=== PATIENT | male | born 1950 | race Caucasian/White ===

== ENCOUNTER 2023-03-11 00:45 | Inpatient (IN) | payer BC ==
[~2023-03-11] VITALS: Ht 172.7 cm; Wt 103.2 kg
[~2023-03-11 00:45] MED LIST: CALC667T6 PO; DOXY100C5 PO; PROXL60 PO; QUET50TA92 PO; SER25 PO
[2023-03-11 00:51] VITALS: BP_SYST 182
[2023-03-11 01:30] LABS: BASOPHILS # (AUTO) 0.1 K/uL (0.0-0.2); BASOPHILS % (AUTO) 0.9 % (0.0-2.0); EOSINOPHILS # (AUTO) 0.1 K/uL (0.0-0.4); EOSINOPHILS % (AUTO) 1.9 % (0.0-4.0); HEMATOCRIT 28.7 % (36-54); HEMOGLOBIN 9.3 g/dL (14.0-18.0); LYMPHOCYTES # (AUTO) 0.6 K/uL (1.0-5.5); LYMPHOCYTES % (AUTO) 8.5 % (20.5-51.5); MEAN CORPUSCULAR HEMOGLOBIN 31 pg (27-31); MEAN CORPUSCULAR HGB CONC 32 % (32-36); MEAN CORPUSCULAR VOLUME 96 fL (79.0-98.0); MONOCYTES # (AUTO) 0.7 K/uL (0.0-1.0); MONOCYTES % (AUTO) 9.3 % (1.7-9.3); NEUTROPHILS # (AUTO) 5.5 K/uL (1.8-7.7); NEUTROPHILS % (AUTO) 79.4 % (40.0-70.0); PLATELET COUNT (AUTO) 121 K/uL (130-430); RED BLOOD CELL COUNT(AUTO) 2.99 MIL/uL (4.2-6.2); RED CELL DISTRIBUTION WIDTH 16.8 % (9.0-15.0)
[2023-03-11 02:03] LABS: ALANINE AMINOTRANSFERASE 39 U/L (12-78); ALBUMIN 3.6 g/dL (3.4-4.8); ANION GAP 21 (5-15); ASPARTATE AMINOTRANSFERASE 35 U/L (10-37); CHLORIDE 106 mmol/L (98-107); GLUCOSE 139 mg/dL (70-99); PHOSPHORUS 9.8 mg/dL (2.7-4.5); TOTAL BILIRUBIN 0.4 mg/dL (0.0-1.0)
[2023-03-11 02:10] LABS: CALCIUM 5.8 mg/dL (8.4-11.0); CREATININE 14.73 mg/dL (0.55-1.30); UREA NITROGEN, BLOOD 188 mg/dL (8-21)
[2023-03-11 03:20] LABS: BILIRUBIN,URINE NEGATIVE (NEGATIVE); BLOOD, URINE 2+ (NEGATIVE); CLARITY/URINE CLEAR (CLEAR); COLOR,URINE YELLOW (YELLOW); GLUCOSE,URINE NEGATIVE (NEGATIVE); KETONES,URINE NEGATIVE (NEGATIVE); LEUKOCYTE ESTERASE ,URINE NEGATIVE (NEGATIVE); NITRITE, URINE NEGATIVE (NEGATIVE); PROTEIN URINE 3+ (NEGATIVE); UROBILINOGEN,URINE 0.2 (0.2-1.0)
[2023-03-11] MEDS ORDERED: hydrALAZINE HCL 20 MG/ML VIAL IVP ONE (03:30)
[2023-03-11 03:36] LABS: BACTERIA,URINE RARE /HPF (None Seen)
[2023-03-11 03:58] VITALS: BP_SYST 154
[2023-03-11] MEDS ORDERED: HYDROcodone/ACETAMIN 5-325 MG TAB (NORCO/ VICODIN) PO ONE (04:30)
[2023-03-11 08:00] VITALS: BP_SYST 170
[2023-03-11 13:51] VITALS: BP_SYST 164
[2023-03-11 16:00] VITALS: BP_SYST 165
[2023-03-11] MEDS ORDERED: D5W 1,000 ML IV PRN (16:30)
[2023-03-11] MEDS ORDERED: GLUCOSE (DEXTROSE) ORAL GEL -Adults PO PRN (16:30)
[2023-03-11] MEDS ORDERED: DEXTROSE 50% JECT 50 ML DISP.SYRIN IVP PRN (16:30)
[2023-03-11] MEDS ORDERED: amLODIPine BESYLATE 10 MG TABLET PO ONE (17:00)
[2023-03-11] MEDS: SEVELAMER CARBONATE 800 MG TABLET PO SCH (17:21)
[2023-03-11] MEDS ORDERED: ONDANSETRON HCL 4 MG/2 ML VIAL IVP PRN (19:00)
[2023-03-11] MEDS: HALOPERIDOL LACTATE 5 MG/ML VIAL IM PRN (19:56)
[2023-03-11] MEDS: INSULIN GLARGINE 100 UNITS/ML, 10 ML VIAL SUBCUT SCH (22:31)
[2023-03-12] MEDS: HALOPERIDOL LACTATE 5 MG/ML VIAL IM PRN ×5 (00:04→22:00)
[2023-03-12 07:30] LABS: ALANINE AMINOTRANSFERASE 30 U/L (12-78); ALBUMIN 3.4 g/dL (3.4-4.8); ANION GAP 23 (5-15); ASPARTATE AMINOTRANSFERASE 28 U/L (10-37); CHLORIDE 97 mmol/L (98-107); GLUCOSE 163 mg/dL (70-99); TOTAL BILIRUBIN 0.7 mg/dL (0.0-1.0)
[2023-03-12 08:00] VITALS: BP_SYST 170
[2023-03-12] MEDS: SEVELAMER CARBONATE 800 MG TABLET PO SCH ×4 (08:00→18:49)
[2023-03-12 08:08] LABS: CALCIUM 6.5 mg/dL (8.4-11.0); UREA NITROGEN, BLOOD 125 mg/dL (8-21)
[2023-03-12 08:19] LABS: BASOPHILS # (AUTO) 0.1 K/uL (0.0-0.2); BASOPHILS % (AUTO) 0.7 % (0.0-2.0); EOSINOPHILS % (AUTO) 0.1 % (0.0-4.0); HEMATOCRIT 25.6 % (36-54); HEMOGLOBIN 8.5 g/dL (14.0-18.0); LYMPHOCYTES # (AUTO) 0.4 K/uL (1.0-5.5); LYMPHOCYTES % (AUTO) 4.7 % (20.5-51.5); MEAN CORPUSCULAR HEMOGLOBIN 32 pg (27-31); MEAN CORPUSCULAR HGB CONC 33 % (32-36); MEAN CORPUSCULAR VOLUME 96 fL (79.0-98.0); MONOCYTES # (AUTO) 0.8 K/uL (0.0-1.0); MONOCYTES % (AUTO) 10.1 % (1.7-9.3); NEUTROPHILS # (AUTO) 6.3 K/uL (1.8-7.7); NEUTROPHILS % (AUTO) 84.4 % (40.0-70.0); RED BLOOD CELL COUNT(AUTO) 2.68 MIL/uL (4.2-6.2); RED CELL DISTRIBUTION WIDTH 16.1 % (9.0-15.0); WHITE BLOOD COUNT (AUTO) 7.5 K/uL (4.8-10.8)
[2023-03-12] MEDS: amLODIPine BESYLATE 10 MG TABLET PO SCH ×2 (08:28→08:37)
[2023-03-12] MEDS ORDERED: QUEtiapine FUMARATE 25 MG TABLET PO ONE (09:30)
[2023-03-12] MEDS ORDERED: CALCIUM GLUCONATE 1 GM in NS 100 ML IV ONE (10:00)
[2023-03-12] MEDS: HEPARIN SODIUM,PORCINE 5,000 UNITS/ML VIAL SUBCUT SCH ×2 (10:49→21:00)
[2023-03-12] MEDS: hydrALAZINE HCL 20 MG/ML VIAL IVP PRN ×2 (10:59→18:38)
[2023-03-12 12:06] VITALS: BP_SYST 155
[2023-03-12 13:21] LABS: PLATELET COUNT (AUTO) 94 K/uL (130-430)
[2023-03-12 16:00] VITALS: BP_SYST 191
[2023-03-12] MEDS ORDERED: LORazepam 2 MG/ML VIAL IVP PRN (16:30)
[2023-03-12] MEDS ORDERED: METOPROLOL TARTRATE 50 MG TABLET PO ONE (16:45)
[2023-03-12] MEDS ORDERED: MORPHINE 2 MG/ML INJ. SYRINGE IVP PRN (17:15)
[2023-03-12 20:00] VITALS: BP_SYST 168
[2023-03-12] MEDS ORDERED: NITROGLYCERIN 250 ML IV ONE (21:30)
[2023-03-12] MEDS: QUEtiapine FUMARATE 25 MG TABLET PO SCH (21:52)
[2023-03-12] MEDS: INSULIN REGULAR, HUMAN 100 UNITS/ML, 3 ML VIAL (humuLIN R) SUBCUT PRN (22:15)
[2023-03-12] MEDS: INSULIN GLARGINE 100 UNITS/ML, 10 ML VIAL SUBCUT SCH (22:17)
[2023-03-12] MEDS: METOPROLOL TARTRATE 5 MG/5 ML VIAL IVP SCH (22:56)
[2023-03-13 00:43] VITALS: BP_SYST 162
[2023-03-13] MEDS: hydrALAZINE HCL 20 MG/ML VIAL IVP PRN (00:56)
[2023-03-13] MEDS: HALOPERIDOL LACTATE 5 MG/ML VIAL IM PRN ×2 (03:01→22:53)
[2023-03-13] MEDS: METOPROLOL TARTRATE 5 MG/5 ML VIAL IVP SCH ×4 (04:30→22:22)
[2023-03-13 05:45] LABS: BASOPHILS % (AUTO) 0.7 % (0.0-2.0); EOSINOPHILS % (AUTO) 0.5 % (0.0-4.0); HEMATOCRIT 28.5 % (36-54); HEMOGLOBIN 9.4 g/dL (14.0-18.0); LYMPHOCYTES # (AUTO) 0.7 K/uL (1.0-5.5); MEAN CORPUSCULAR HEMOGLOBIN 32 pg (27-31); MEAN CORPUSCULAR HGB CONC 33 % (32-36); MEAN CORPUSCULAR VOLUME 95 fL (79.0-98.0); MONOCYTES % (AUTO) 13.6 % (1.7-9.3); NEUTROPHILS # (AUTO) 5.6 K/uL (1.8-7.7); NEUTROPHILS % (AUTO) 75.2 % (40.0-70.0); PLATELET COUNT (AUTO) 103 K/uL (130-430); RED BLOOD CELL COUNT(AUTO) 2.99 MIL/uL (4.2-6.2); RED CELL DISTRIBUTION WIDTH 16.4 % (9.0-15.0); WHITE BLOOD COUNT (AUTO) 7.4 K/uL (4.8-10.8)
[2023-03-13 06:25] LABS: ALANINE AMINOTRANSFERASE 31 U/L (12-78); ALBUMIN 3.5 g/dL (3.4-4.8); ANION GAP 15 (5-15); ASPARTATE AMINOTRANSFERASE 40 U/L (10-37); CALCIUM 7.6 mg/dL (8.4-11.0); CHLORIDE 96 mmol/L (98-107); GLUCOSE 70 mg/dL (70-99); TOTAL BILIRUBIN 0.7 mg/dL (0.0-1.0); UREA NITROGEN, BLOOD 79 mg/dL (8-21)
[2023-03-13 06:42] LABS: CREATININE 8.17 mg/dL (0.55-1.30)
[2023-03-13] MEDS ORDERED: NITROGLYCERIN 0.4 MG TAB.SUBL SL PRN (07:00)
[2023-03-13] MEDS: SEVELAMER CARBONATE 800 MG TABLET PO SCH ×3 (08:00→18:00)
[2023-03-13 08:30] VITALS: BP_SYST 162
[2023-03-13] MEDS: amLODIPine BESYLATE 10 MG TABLET PO SCH (10:57)
[2023-03-13] MEDS: QUEtiapine FUMARATE 25 MG TABLET PO SCH ×2 (10:57→22:15)
[2023-03-13] MEDS: HEPARIN SODIUM,PORCINE 5,000 UNITS/ML VIAL SUBCUT SCH ×2 (10:58→22:23)
[2023-03-13 11:30] VITALS: BP_SYST 151
[2023-03-13 15:56] VITALS: BP_SYST 148
[2023-03-13 19:00] VITALS: BP_SYST 160
[2023-03-13 20:00] VITALS: BP_SYST 160
[2023-03-14 01:49] VITALS: BP_SYST 207
[2023-03-14 02:13] VITALS: BP_SYST 185
[2023-03-14] MEDS: METOPROLOL TARTRATE 5 MG/5 ML VIAL IVP SCH ×4 (04:30→22:21)
[2023-03-14] MEDS ORDERED: *TPN PER PHARMACY XX PRN (06:30)
[2023-03-14 06:44] LABS: BASOPHILS % (AUTO) 0.6 % (0.0-2.0); EOSINOPHILS # (AUTO) 0.1 K/uL (0.0-0.4); EOSINOPHILS % (AUTO) 1.3 % (0.0-4.0); HEMATOCRIT 28.6 % (36-54); HEMOGLOBIN 9.3 g/dL (14.0-18.0); LYMPHOCYTES # (AUTO) 0.7 K/uL (1.0-5.5); MEAN CORPUSCULAR HEMOGLOBIN 32 pg (27-31); MEAN CORPUSCULAR HGB CONC 33 % (32-36); MEAN CORPUSCULAR VOLUME 97 fL (79.0-98.0); MONOCYTES % (AUTO) 13.6 % (1.7-9.3); NEUTROPHILS # (AUTO) 5.3 K/uL (1.8-7.7); NEUTROPHILS % (AUTO) 74.5 % (40.0-70.0); PLATELET COUNT (AUTO) 107 K/uL (130-430); RED BLOOD CELL COUNT(AUTO) 2.96 MIL/uL (4.2-6.2); RED CELL DISTRIBUTION WIDTH 16.2 % (9.0-15.0); WHITE BLOOD COUNT (AUTO) 7.1 K/uL (4.8-10.8)
[2023-03-14 07:48] LABS: ANION GAP 19 (5-15); CHLORIDE 95 mmol/L (98-107); GLUCOSE 85 mg/dL (70-99); UREA NITROGEN, BLOOD 91 mg/dL (8-21)
[2023-03-14 08:00] VITALS: BP_SYST 135
[2023-03-14 08:14] LABS: CALCIUM 6.9 mg/dL (8.4-11.0)
[2023-03-14 08:28] LABS: ALANINE AMINOTRANSFERASE 27 U/L (12-78); ALBUMIN 3.6 g/dL (3.4-4.8); ASPARTATE AMINOTRANSFERASE 40 U/L (10-37); PHOSPHORUS 7.9 mg/dL (2.7-4.5); TOTAL BILIRUBIN 0.7 mg/dL (0.0-1.0); TRIGLYCERIDES 119 mg/dL (30-150)
[2023-03-14] MEDS: amLODIPine BESYLATE 10 MG TABLET PO SCH (09:00)
[2023-03-14] MEDS: SEVELAMER CARBONATE 800 MG TABLET PO SCH ×3 (11:08→17:01)
[2023-03-14] MEDS: QUEtiapine FUMARATE 25 MG TABLET PO SCH ×2 (11:08→21:33)
[2023-03-14] MEDS: HEPARIN SODIUM,PORCINE 5,000 UNITS/ML VIAL SUBCUT SCH ×2 (11:09→21:41)
[2023-03-14 11:29] VITALS: BP_SYST 161
[2023-03-14 15:34] VITALS: BP_SYST 162
[2023-03-14 20:05] VITALS: BP_SYST 162
[2023-03-14] MEDS ORDERED: SODIUM ACETATE IV SCH ×8 (21:00)
[2023-03-14] MEDS ORDERED: POTASSIUM CHLORIDE IV SCH ×8 (21:00)
[2023-03-14] MEDS ORDERED: TPN PERIPHERAL IV SCH ×8 (21:00)
[2023-03-14] MEDS ORDERED: [UNRECOGNIZED DRUG - OTHER] IV SCH ×8 (21:00)
[2023-03-14] MEDS: FAT EMULSIONS 250 ML IV SCH (21:41)
[2023-03-14] MEDS: HALOPERIDOL LACTATE 5 MG/ML VIAL IM PRN (22:20)
[2023-03-15 00:15] VITALS: BP_SYST 154
[2023-03-15] MEDS: METOPROLOL TARTRATE 5 MG/5 ML VIAL IVP SCH ×2 (05:38→09:45)
[2023-03-15 06:56] LABS: BASOPHILS % (AUTO) 0.7 % (0.0-2.0); EOSINOPHILS # (AUTO) 0.1 K/uL (0.0-0.4); EOSINOPHILS % (AUTO) 1.6 % (0.0-4.0); HEMATOCRIT 26.8 % (36-54); HEMOGLOBIN 8.9 g/dL (14.0-18.0); LYMPHOCYTES # (AUTO) 0.7 K/uL (1.0-5.5); LYMPHOCYTES % (AUTO) 10.4 % (20.5-51.5); MEAN CORPUSCULAR HEMOGLOBIN 32 pg (27-31); MEAN CORPUSCULAR HGB CONC 33 % (32-36); MEAN CORPUSCULAR VOLUME 97 fL (79.0-98.0); MONOCYTES # (AUTO) 0.8 K/uL (0.0-1.0); MONOCYTES % (AUTO) 12.7 % (1.7-9.3); NEUTROPHILS # (AUTO) 4.7 K/uL (1.8-7.7); NEUTROPHILS % (AUTO) 74.6 % (40.0-70.0); PLATELET COUNT (AUTO) 110 K/uL (130-430); RED BLOOD CELL COUNT(AUTO) 2.77 MIL/uL (4.2-6.2); RED CELL DISTRIBUTION WIDTH 16.1 % (9.0-15.0); WHITE BLOOD COUNT (AUTO) 6.3 K/uL (4.8-10.8)
[2023-03-15 07:19] LABS: ALANINE AMINOTRANSFERASE 31 U/L (12-78); ALBUMIN 3.2 g/dL (3.4-4.8); ANION GAP 13 (5-15); ASPARTATE AMINOTRANSFERASE 33 U/L (10-37); CHLORIDE 97 mmol/L (98-107); CREATININE 7.35 mg/dL (0.55-1.30); GLUCOSE 150 mg/dL (70-99); PHOSPHORUS 5.6 mg/dL (2.7-4.5); TOTAL BILIRUBIN 0.6 mg/dL (0.0-1.0); UREA NITROGEN, BLOOD 62 mg/dL (8-21)
[2023-03-15 08:00] VITALS: BP_SYST 186
[2023-03-15 08:39] LABS: CALCIUM 6.8 mg/dL (8.4-11.0)
[2023-03-15] MEDS ORDERED: CALCIUM GLUCONATE 1 GM in NS 100 ML IV ONE (08:45)
[2023-03-15] MEDS: QUEtiapine FUMARATE 25 MG TABLET PO SCH ×2 (09:11→21:41)
[2023-03-15] MEDS: SEVELAMER CARBONATE 800 MG TABLET PO SCH ×3 (09:11→17:11)
[2023-03-15] MEDS: amLODIPine BESYLATE 10 MG TABLET PO SCH (09:11)
[2023-03-15] MEDS: HEPARIN SODIUM,PORCINE 5,000 UNITS/ML VIAL SUBCUT SCH ×2 (09:13→21:37)
[2023-03-15] MEDS ORDERED: IPRATROPIUM/ALBUTEROL SULFATE 3 ML AMPUL.NEB (DUONEB) INH PRN (10:00)
[2023-03-15] MEDS ORDERED: guaiFENesin ER 600 MG TAB PO ONE (10:30)
[2023-03-15] MEDS ORDERED: METOPROLOL TARTRATE 50 MG TABLET PO ONE (10:30)
[2023-03-15] MEDS: INSULIN REGULAR, HUMAN 100 UNITS/ML, 3 ML VIAL (humuLIN R) SUBCUT PRN ×3 (10:57→22:15)
[2023-03-15 11:41] VITALS: BP_SYST 138
[2023-03-15 15:18] VITALS: BP_SYST 128
[2023-03-15 19:50] VITALS: BP_SYST 165
[2023-03-15] MEDS ORDERED: EPOETIN ALFA-EPBX 3,000 UNITS/ML VIAL SUBCUT ONE (21:00)
[2023-03-15] MEDS ORDERED: [UNRECOGNIZED DRUG - OTHER] IV SCH ×8 (21:00)
[2023-03-15] MEDS ORDERED: SODIUM CHLORIDE IV SCH ×8 (21:00)
[2023-03-15] MEDS ORDERED: POTASSIUM ACETATE IV SCH ×8 (21:00)
[2023-03-15] MEDS ORDERED: TPN PERIPHERAL IV SCH ×8 (21:00)
[2023-03-15] MEDS: METOPROLOL TARTRATE 50 MG TABLET PO SCH (21:36)
[2023-03-15] MEDS: guaiFENesin ER 600 MG TAB PO SCH (21:41)
[2023-03-15] MEDS: FAT EMULSIONS 250 ML IV SCH (21:41)
[2023-03-16 02:16] VITALS: BP_SYST 129
[2023-03-16] MEDS: INSULIN REGULAR, HUMAN 100 UNITS/ML, 3 ML VIAL (humuLIN R) SUBCUT PRN ×4 (06:33→20:48)
[2023-03-16 06:36] LABS: BASOPHILS # (AUTO) 0.1 K/uL (0.0-0.2); BASOPHILS % (AUTO) 1.7 % (0.0-2.0); EOSINOPHILS # (AUTO) 0.2 K/uL (0.0-0.4); EOSINOPHILS % (AUTO) 2.6 % (0.0-4.0); HEMATOCRIT 29.5 % (36-54); HEMOGLOBIN 9.7 g/dL (14.0-18.0); LYMPHOCYTES # (AUTO) 0.6 K/uL (1.0-5.5); LYMPHOCYTES % (AUTO) 8.3 % (20.5-51.5); MEAN CORPUSCULAR HEMOGLOBIN 32 pg (27-31); MEAN CORPUSCULAR HGB CONC 33 % (32-36); MEAN CORPUSCULAR VOLUME 97 fL (79.0-98.0); MONOCYTES # (AUTO) 0.8 K/uL (0.0-1.0); MONOCYTES % (AUTO) 10.8 % (1.7-9.3); NEUTROPHILS # (AUTO) 5.7 K/uL (1.8-7.7); NEUTROPHILS % (AUTO) 76.6 % (40.0-70.0); PLATELET COUNT (AUTO) 111 K/uL (130-430); RED BLOOD CELL COUNT(AUTO) 3.06 MIL/uL (4.2-6.2); WHITE BLOOD COUNT (AUTO) 7.4 K/uL (4.8-10.8)
[2023-03-16 06:51] LABS: ANION GAP 11 (5-15); CHLORIDE 96 mmol/L (98-107); GLUCOSE 182 mg/dL (70-99); UREA NITROGEN, BLOOD 75 mg/dL (8-21)
[2023-03-16 07:34] LABS: CALCIUM 6.6 mg/dL (8.4-11.0); CREATININE 8.35 mg/dL (0.55-1.30)
[2023-03-16 08:00] VITALS: BP_SYST 178
[2023-03-16] MEDS: HEPARIN SODIUM,PORCINE 5,000 UNITS/ML VIAL SUBCUT SCH ×2 (09:32→21:41)
[2023-03-16] MEDS: NEPHROVITE, (FOLIC ACID/VITAMIN B COMP W-C 1 TAB) PO SCH (09:33)
[2023-03-16] MEDS: SEVELAMER CARBONATE 800 MG TABLET PO SCH ×3 (09:33→17:09)
[2023-03-16] MEDS: guaiFENesin ER 600 MG TAB PO SCH ×2 (09:33→20:42)
[2023-03-16] MEDS: amLODIPine BESYLATE 10 MG TABLET PO SCH (09:34)
[2023-03-16] MEDS: METOPROLOL TARTRATE 50 MG TABLET PO SCH ×2 (09:34→21:44)
[2023-03-16] MEDS ORDERED: CALCIUM GLUCONATE 1 GM in NS 100 ML IV ONE (11:00)
[2023-03-16 13:12] VITALS: BP_SYST 194
[2023-03-16] MEDS: hydrALAZINE HCL 20 MG/ML VIAL IVP PRN ×2 (16:03→21:33)
[2023-03-16 16:15] VITALS: BP_SYST 195
[2023-03-16] MEDS ORDERED: NIFEDIPINE 90 MG TABLET.SA (PROCARDIA XL 90 MG) PO ONE (17:00)
[2023-03-16 18:04] VITALS: BP_SYST 170
[2023-03-16 19:40] VITALS: BP_SYST 197
[2023-03-16] MEDS ORDERED: TPN PERIPHERAL IV SCH ×8 (21:00)
[2023-03-16] MEDS ORDERED: POTASSIUM CHLORIDE IV SCH ×8 (21:00)
[2023-03-16] MEDS ORDERED: QUEtiapine FUMARATE 25 MG TABLET PO SCH (21:00)
[2023-03-16] MEDS ORDERED: [UNRECOGNIZED DRUG - OTHER] IV SCH ×8 (21:00)
[2023-03-16] MEDS ORDERED: SODIUM CHLORIDE IV SCH ×8 (21:00)
[2023-03-16] MEDS: FAT EMULSIONS 250 ML IV SCH (21:39)
[2023-03-17 00:34] VITALS: BP_SYST 159
[2023-03-17 06:16] LABS: ALANINE AMINOTRANSFERASE 22 U/L (12-78); ALBUMIN 3.1 g/dL (3.4-4.8); ANION GAP 9 (5-15); ASPARTATE AMINOTRANSFERASE 24 U/L (10-37); CALCIUM 7.8 mg/dL (8.4-11.0); CHLORIDE 98 mmol/L (98-107); GLUCOSE 187 mg/dL (70-99); PHOSPHORUS 4.2 mg/dL (2.7-4.5); TOTAL BILIRUBIN 0.7 mg/dL (0.0-1.0); UREA NITROGEN, BLOOD 52 mg/dL (8-21)
[2023-03-17] MEDS: INSULIN REGULAR, HUMAN 100 UNITS/ML, 3 ML VIAL (humuLIN R) SUBCUT PRN ×3 (06:39→17:18)
[2023-03-17] MEDS ORDERED: NIFEDIPINE 90 MG TABLET.SA (PROCARDIA XL 90 MG) PO SCH (09:00)
[2023-03-17] MEDS: HEPARIN SODIUM,PORCINE 5,000 UNITS/ML VIAL SUBCUT SCH (09:00)
[2023-03-17] MEDS: NEPHROVITE, (FOLIC ACID/VITAMIN B COMP W-C 1 TAB) PO SCH (09:11)
[2023-03-17] MEDS: SEVELAMER CARBONATE 800 MG TABLET PO SCH ×3 (09:12→17:16)
[2023-03-17] MEDS: guaiFENesin ER 600 MG TAB PO SCH (09:12)
[2023-03-17] MEDS: METOPROLOL TARTRATE 50 MG TABLET PO SCH (09:12)
[2023-03-17 11:30] VITALS: BP_SYST 118
[2023-03-17] MEDS ORDERED: NIFE90TA24 PO (14:16)
[2023-03-17] MEDS ORDERED: BLOO-1360 XX (14:16)
[2023-03-17] MEDS ORDERED: GUAI600T45 PO (14:16)
[2023-03-17] MEDS ORDERED: METO-442 PO (14:16)
[2023-03-17] MEDS ORDERED: SEVE800T8 PO (14:16)
[2023-03-17 15:50] VITALS: BP_SYST 131
[2023-03-17] MEDS ORDERED: EPOETIN ALFA-EPBX 3,000 UNITS/ML VIAL SUBCUT SCH (17:00)
[2023-03-17 18:44] VITALS: BP_SYST 131
== END 2023-03-17 20:05 | disposition home or self-care (01) | DRG 70 ==
LOC: SED 00:45 → STU 02:27 → SMU 03-16 11:19
PROVIDERS: ADMIT Specialist; ATTEND Family Medicine
PROC: 5A1D70Z Performance of Urinary Filtration, Intermittent, Less than 6 Hours Per Day (ICD-10-PCS; principal; 2023-03-11)
PROC: 5A1D70Z Performance of Urinary Filtration, Intermittent, Less than 6 Hours Per Day (ICD-10-PCS; 2023-03-12)
PROC: 5A1D70Z Performance of Urinary Filtration, Intermittent, Less than 6 Hours Per Day (ICD-10-PCS; 2023-03-13)
PROC: 5A1D70Z Performance of Urinary Filtration, Intermittent, Less than 6 Hours Per Day (ICD-10-PCS; 2023-03-15)
DX: G93.49 Other encephalopathy (principal); N18.6 End stage renal disease; L03.119 Cellulitis of unspecified part of limb; I12.0 Hypertensive chronic kidney disease with stage 5 chronic kidney disease or end stage renal disease; I16.0 Hypertensive urgency; E87.70 Fluid overload, unspecified; R60.1 Generalized edema; E11.22 Type 2 diabetes mellitus with diabetic chronic kidney disease; E87.5 Hyperkalemia; D63.1 Anemia in chronic kidney disease; E66.9 Obesity, unspecified; Z68.34 Body mass index [BMI] 34.0-34.9, adult; Z86.73 Personal history of transient ischemic attack (TIA), and cerebral infarction without residual deficits; Z91.158 Patient's noncompliance with renal dialysis for other reason; Z99.2 Dependence on renal dialysis
CPT/HCPCS: 36415; 71045; 80048; 80053; 81000; 83037; 83605; 83735; 83880; 84100; 84478; 84484; 85025; 87040; 87081; 90935; 90937; 93005; 93306; 93970; 96372; 96374; 99291; G0378; J0360; J0610; J1630; J1644; J1815; J2060; J2270; J3480; J3490; J7131; Q5106

== ENCOUNTER 2023-05-15 20:39 | Inpatient (IN) | payer BC ==
[~2023-05-15] VITALS: Ht 170.2 cm; Wt 95.3 kg
[~2023-05-15 20:39] MED LIST changes: +BLOO-1360 XX; -DOXY100C5 PO; +GUAI600T45 PO; +METO-442 PO; +NIFE90TA24 PO; -PROXL60 PO; -QUET50TA92 PO; +SEVE800T8 PO
[2023-05-15 20:42] VITALS: BP_SYST 148; PULSE 79; RESP 17; TEMP 98.6; O2SAT 95
[2023-05-15 21:22] LABS: BASOPHILS # (AUTO) 0.1 K/uL (0.0-0.2); BASOPHILS % (AUTO) 1.3 % (0.0-2.0); EOSINOPHILS # (AUTO) 0.1 K/uL (0.0-0.4); HEMATOCRIT 33.7 % (36-54); HEMOGLOBIN 10.6 g/dL (14.0-18.0); LYMPHOCYTES # (AUTO) 0.6 K/uL (1.0-5.5); LYMPHOCYTES % (AUTO) 10.3 % (20.5-51.5); MEAN CORPUSCULAR HEMOGLOBIN 31 pg (27-31); MEAN CORPUSCULAR HGB CONC 32 % (32-36); MEAN CORPUSCULAR VOLUME 97 fL (79.0-98.0); MONOCYTES # (AUTO) 0.7 K/uL (0.0-1.0); MONOCYTES % (AUTO) 12.8 % (1.7-9.3); NEUTROPHILS # (AUTO) 4.2 K/uL (1.8-7.7); NEUTROPHILS % (AUTO) 74.6 % (40.0-70.0); PLATELET COUNT (AUTO) 118 K/uL (130-430); RED BLOOD CELL COUNT(AUTO) 3.48 MIL/uL (4.2-6.2); RED CELL DISTRIBUTION WIDTH 15.9 % (9.0-15.0); WHITE BLOOD COUNT (AUTO) 5.7 K/uL (4.8-10.8)
[2023-05-15 21:35] LABS: ALANINE AMINOTRANSFERASE 12 U/L (12-78); ALBUMIN 3.9 g/dL (3.4-4.8); ANION GAP 24 (5-15); ASPARTATE AMINOTRANSFERASE 18 U/L (10-37); CARBON DIOXIDE 15 mmol/L (23-29); CHLORIDE 95 mmol/L (98-107); GLUCOSE 153 mg/dL (74-106); SODIUM SERUM 134 mmol/L (136-145); TOTAL BILIRUBIN 0.6 mg/dL (0.0-1.0); TOTAL PROTEIN, SERUM 7.5 g/dL (6.4-8.3)
[2023-05-15 21:51] LABS: CALCIUM 6.1 mg/dL (8.4-11.0)
[2023-05-15 21:52] LABS: UREA NITROGEN, BLOOD 151 mg/dL (8-21)
[2023-05-15 21:54] LABS: CREATININE 17.74 mg/dL (0.55-1.30)
[2023-05-15 21:55] LABS: POTASSIUM 7.8 mmol/L (3.5-5.1)
[2023-05-15] MEDS ORDERED: SODIUM BICARBONATE 8.4% JECT 50 MEQ/50 ML SYRINGE IVP ONE (22:00)
[2023-05-15] MEDS ORDERED: INSULIN REGULAR, HUMAN 10 UNITS/0.1 ML, 3 ML VIAL IVP ONE (22:00)
[2023-05-15] MEDS ORDERED: SODIUM POLYSTYRENE SULFONATE 15 GM/60 ML UDBTL PO ONE (22:00)
[2023-05-15] MEDS ORDERED: DEXTROSE 50% JECT 50 ML DISP.SYRIN IVP ONE (22:00)
[2023-05-15] MEDS ORDERED: INSULIN REGULAR, HUMAN 10 UNITS/0.1 ML, 3 ML VIAL ONE (22:19)
[2023-05-15] MEDS ORDERED: CALCIUM GLUCONATE 2 GM in NS 100 ML IV ONE (22:45)
[2023-05-15] MEDS ORDERED: CALCIUM GLUC 1 GM/100ML-NACL 100 ML IV ONE (23:00)
[2023-05-15] MEDS ORDERED: INSU100V3 SUBCUT (23:06)
[2023-05-16] VITALS (7 sets, daily range): BP systolic 138–183; PULSE 66–97; RESP 16–18; TEMP 97.4–99.5; O2SAT 95–98
[2023-05-16] MEDS ORDERED: CALCIUM GLUCONATE 1 GM/10 ML VIAL ONE ×2 (00:56→02:39)
[2023-05-16] MEDS: QUEtiapine FUMARATE 25 MG TABLET PO SCH ×3 (05:30→20:25)
[2023-05-16] MEDS ORDERED: LORazepam 2 MG/ML VIAL IVP ONE (05:30)
[2023-05-16 05:56] LABS: BASOPHILS # (AUTO) 0.1 K/uL (0.0-0.2); BASOPHILS % (AUTO) 0.8 % (0.0-2.0); EOSINOPHILS % (AUTO) 0.2 % (0.0-4.0); HEMOGLOBIN 11.2 g/dL (14.0-18.0); LYMPHOCYTES # (AUTO) 0.3 K/uL (1.0-5.5); LYMPHOCYTES % (AUTO) 3.6 % (20.5-51.5); MEAN CORPUSCULAR HEMOGLOBIN 31 pg (27-31); MEAN CORPUSCULAR HGB CONC 32 % (32-36); MEAN CORPUSCULAR VOLUME 95 fL (79.0-98.0); MONOCYTES % (AUTO) 10.3 % (1.7-9.3); NEUTROPHILS # (AUTO) 7.9 K/uL (1.8-7.7); NEUTROPHILS % (AUTO) 85.1 % (40.0-70.0); PLATELET COUNT (AUTO) 130 K/uL (130-430); RED BLOOD CELL COUNT(AUTO) 3.66 MIL/uL (4.2-6.2); RED CELL DISTRIBUTION WIDTH 15.8 % (9.0-15.0); WHITE BLOOD COUNT (AUTO) 9.3 K/uL (4.8-10.8)
[2023-05-16 06:00] LABS: ANION GAP 25 (5-15); CALCIUM 7.5 mg/dL (8.4-11.0); CARBON DIOXIDE 20 mmol/L (23-29); CHLORIDE 94 mmol/L (98-107); GLUCOSE 139 mg/dL (74-106); POTASSIUM 4.5 mmol/L (3.5-5.1); SODIUM SERUM 139 mmol/L (136-145); UREA NITROGEN, BLOOD 98 mg/dL (8-21)
[2023-05-16] MEDS ORDERED: ceFAZolin SODIUM 2 GM in D5W 100 ML IV SCH (13:15)
[2023-05-16] MEDS ORDERED: HALOPERIDOL LACTATE 5 MG/ML VIAL IM PRN (13:15)
[2023-05-16] MEDS: CEFAZOLIN SOD 1 GM in D5W 50 ML IV SCH (15:14)
[2023-05-16] MEDS: guaiFENesin ER 600 MG TAB PO SCH (20:25)
[2023-05-16] MEDS: SEVELAMER CARBONATE 800 MG TABLET PO SCH (20:25)
[2023-05-16] MEDS: METOPROLOL TARTRATE 50 MG TABLET PO SCH (20:25)
[2023-05-16] MEDS ORDERED: QUEtiapine FUMARATE 25 MG TABLET PO SCH (21:00)
[2023-05-17 00:54] VITALS: BP_SYST 171; PULSE 85; RESP 19; TEMP 97.4; O2SAT 98
[2023-05-17 06:59] LABS: BASOPHILS # (AUTO) 0.1 K/uL (0.0-0.2); BASOPHILS % (AUTO) 1.4 % (0.0-2.0); EOSINOPHILS # (AUTO) 0.1 K/uL (0.0-0.4); EOSINOPHILS % (AUTO) 1.6 % (0.0-4.0); HEMATOCRIT 31.6 % (36-54); HEMOGLOBIN 10.2 g/dL (14.0-18.0); LYMPHOCYTES # (AUTO) 0.9 K/uL (1.0-5.5); LYMPHOCYTES % (AUTO) 14.6 % (20.5-51.5); MEAN CORPUSCULAR HEMOGLOBIN 31 pg (27-31); MEAN CORPUSCULAR HGB CONC 32 % (32-36); MEAN CORPUSCULAR VOLUME 96 fL (79.0-98.0); MONOCYTES # (AUTO) 1.1 K/uL (0.0-1.0); MONOCYTES % (AUTO) 17.3 % (1.7-9.3); NEUTROPHILS # (AUTO) 3.9 K/uL (1.8-7.7); NEUTROPHILS % (AUTO) 65.1 % (40.0-70.0); PLATELET COUNT (AUTO) 88 K/uL (130-430); RED BLOOD CELL COUNT(AUTO) 3.29 MIL/uL (4.2-6.2); RED CELL DISTRIBUTION WIDTH 15.8 % (9.0-15.0); WHITE BLOOD COUNT (AUTO) 6.1 K/uL (4.8-10.8)
[2023-05-17 07:39] LABS: ANION GAP 17 (5-15); CARBON DIOXIDE 27 mmol/L (23-29); CHLORIDE 100 mmol/L (98-107); GLUCOSE 123 mg/dL (74-106); POTASSIUM 4.2 mmol/L (3.5-5.1); SODIUM SERUM 144 mmol/L (136-145); UREA NITROGEN, BLOOD 87 mg/dL (8-21)
[2023-05-17 07:59] LABS: CALCIUM 6.4 mg/dL (8.4-11.0)
[2023-05-17 08:00] VITALS: O2SAT 96
[2023-05-17 08:00] LABS: CREATININE 11.63 mg/dL (0.55-1.30)
[2023-05-17] MEDS ORDERED: CALCIUM GLUCONATE 2 GM in NS 80 ML IV ONE (08:45)
[2023-05-17] MEDS: NIFEDIPINE 90 MG TABLET.SA (PROCARDIA XL 90 MG) PO SCH (10:12)
[2023-05-17] MEDS: guaiFENesin ER 600 MG TAB PO SCH ×2 (10:12→20:02)
[2023-05-17] MEDS: SEVELAMER CARBONATE 800 MG TABLET PO SCH ×3 (10:13→18:00)
[2023-05-17] MEDS: METOPROLOL TARTRATE 50 MG TABLET PO SCH ×2 (10:13→20:02)
[2023-05-17] MEDS: QUEtiapine FUMARATE 25 MG TABLET PO SCH ×2 (10:13→20:02)
[2023-05-17] MEDS: INSULIN NPH/REGULAR 70-30, 100 UNITS/ML, 3 ML VIAL SUBCUT SCH (10:24)
[2023-05-17 13:02] VITALS: BP_SYST 166; PULSE 56; RESP 14; TEMP 96.9; O2SAT 56
[2023-05-17] MEDS: CEFAZOLIN SOD 1 GM in D5W 50 ML IV SCH (15:00)
[2023-05-17] MEDS ORDERED: traMADol HCL HCL 50 MG TABLET (ULTRAM) PO PRN (15:15)
[2023-05-17 19:09] VITALS: BP_SYST 124; PULSE 67; RESP 15; TEMP 96.7; O2SAT 96
[2023-05-17 20:00] VITALS: BP_SYST 162; PULSE 75; RESP 18; TEMP 97.8; O2SAT 95
[2023-05-17] MEDS: HALOPERIDOL LACTATE 5 MG/ML VIAL IM PRN (20:03)
[2023-05-18 03:53] VITALS: O2SAT 95
[2023-05-18 08:00] VITALS: BP_SYST 139; PULSE 66; RESP 20; TEMP 98.1; O2SAT 95
[2023-05-18] MEDS: HALOPERIDOL LACTATE 5 MG/ML VIAL IM PRN (09:04)
[2023-05-18] MEDS ORDERED: DOXY100C5 PO (14:09)
[2023-05-18] MEDS ORDERED: SER25 PO (14:09)
[2023-05-18] MEDS: CEFAZOLIN SOD 1 GM in D5W 50 ML IV SCH (15:00)
[2023-05-18] MEDS: guaiFENesin ER 600 MG TAB PO SCH (15:02)
[2023-05-18] MEDS: NIFEDIPINE 90 MG TABLET.SA (PROCARDIA XL 90 MG) PO SCH (15:03)
[2023-05-18] MEDS: QUEtiapine FUMARATE 25 MG TABLET PO SCH (15:03)
[2023-05-18] MEDS: SEVELAMER CARBONATE 800 MG TABLET PO SCH ×2 (15:03→15:04)
[2023-05-18] MEDS: METOPROLOL TARTRATE 50 MG TABLET PO SCH (15:04)
[2023-05-18] MEDS: INSULIN NPH/REGULAR 70-30, 100 UNITS/ML, 3 ML VIAL SUBCUT SCH (15:07)
[2023-05-18 15:20] VITALS: BP_SYST 133; PULSE 69; RESP 20; TEMP 98.4; O2SAT 95
[2023-05-18 16:28] VITALS: BP_SYST 133; PULSE 75; RESP 18; TEMP 98; O2SAT 95
== END 2023-05-18 17:45 | disposition home health service (06) | DRG 640 ==
LOC: SED 20:39 → STU 22:44
PROVIDERS: ADMIT Specialist; ATTEND Specialist
PROC: 5A1D70Z Performance of Urinary Filtration, Intermittent, Less than 6 Hours Per Day (ICD-10-PCS; principal; 2023-05-15)
PROC: 5A1D70Z Performance of Urinary Filtration, Intermittent, Less than 6 Hours Per Day (ICD-10-PCS; 2023-05-16)
PROC: 5A1D70Z Performance of Urinary Filtration, Intermittent, Less than 6 Hours Per Day (ICD-10-PCS; 2023-05-17)
DX: E87.5 Hyperkalemia (principal); N18.6 End stage renal disease; I13.2 Hypertensive heart and chronic kidney disease with heart failure and with stage 5 chronic kidney disease, or end stage renal disease; L03.116 Cellulitis of left lower limb; L03.115 Cellulitis of right lower limb; E11.40 Type 2 diabetes mellitus with diabetic neuropathy, unspecified; E11.22 Type 2 diabetes mellitus with diabetic chronic kidney disease; F91.9 Conduct disorder, unspecified; Z68.32 Body mass index [BMI] 32.0-32.9, adult; R41.0 Disorientation, unspecified; E11.51 Type 2 diabetes mellitus with diabetic peripheral angiopathy without gangrene; E11.21 Type 2 diabetes mellitus with diabetic nephropathy; E11.319 Type 2 diabetes mellitus with unspecified diabetic retinopathy without macular edema; H40.9 Unspecified glaucoma; D63.1 Anemia in chronic kidney disease; E66.01 Morbid (severe) obesity due to excess calories; Z86.73 Personal history of transient ischemic attack (TIA), and cerebral infarction without residual deficits; Z99.2 Dependence on renal dialysis
CPT/HCPCS: 36415; 71045; 80048; 80053; 82962; 83880; 84484; 85025; 90935; 90937; 93005; 99285; A6209; G0378; J0610; J0690; J1630; J1815; J7030; J7050; J7060

== ENCOUNTER 2023-08-07 15:03 | Inpatient (IN) | payer BC ==
[~2023-08-07] VITALS: Ht 167.6 cm; Wt 104.4 kg
[~2023-08-07 15:03] MED LIST changes: +DOXY100C5 PO; +INSU100V3 SUBCUT
[2023-08-07 15:50] LABS: BASOPHILS % (AUTO) 0.3 % (0.0-2.0); EOSINOPHILS # (AUTO) 0.1 K/uL (0.0-0.4); EOSINOPHILS % (AUTO) 1.3 % (0.0-4.0); HEMATOCRIT 33.6 % (36-54); HEMOGLOBIN 10.6 g/dL (14.0-18.0); LYMPHOCYTES # (AUTO) 0.5 K/uL (1.0-5.5); LYMPHOCYTES % (AUTO) 8.8 % (20.5-51.5); MEAN CORPUSCULAR HEMOGLOBIN 31 pg (27-31); MEAN CORPUSCULAR HGB CONC 32 % (32-36); MEAN CORPUSCULAR VOLUME 98 fL (79.0-98.0); MONOCYTES # (AUTO) 0.7 K/uL (0.0-1.0); MONOCYTES % (AUTO) 11.8 % (1.7-9.3); NEUTROPHILS # (AUTO) 4.4 K/uL (1.8-7.7); NEUTROPHILS % (AUTO) 77.8 % (40.0-70.0); PLATELET COUNT (AUTO) 133 K/uL (130-430); RED BLOOD CELL COUNT(AUTO) 3.43 MIL/uL (4.2-6.2); RED CELL DISTRIBUTION WIDTH 15.6 % (9.0-15.0); WHITE BLOOD COUNT (AUTO) 5.7 K/uL (4.8-10.8)
[2023-08-07 16:07] VITALS: BP_SYST 154; PULSE 94; RESP 16; TEMP 96.3; O2SAT 96
[2023-08-07 16:16] LABS: ALANINE AMINOTRANSFERASE 16 U/L (12-78); ALBUMIN 3.9 g/dL (3.4-4.8); ANION GAP 23 (5-15); ASPARTATE AMINOTRANSFERASE 19 U/L (10-37); CALCIUM 7.5 mg/dL (8.4-11.0); CARBON DIOXIDE 19 mmol/L (23-29); CHLORIDE 99 mmol/L (98-107); CREATINE KINASE, TOTAL 417 U/L (39-308); GLUCOSE 174 mg/dL (74-106); LIPASE 25 U/L (16-77); SODIUM SERUM 141 mmol/L (136-145); TOTAL BILIRUBIN 0.5 mg/dL (0.0-1.0); TOTAL PROTEIN, SERUM 7.6 g/dL (6.4-8.3); UREA NITROGEN, BLOOD 93 mg/dL (8-21)
[2023-08-07] MEDS ORDERED: SERT-436 PO (16:20)
[2023-08-07] MEDS ORDERED: ACET-2634 PO (16:20)
[2023-08-07 16:23] LABS: CREATININE 13.78 mg/dL (0.55-1.30)
[2023-08-07 16:44] LABS: CKMB RELATIVE INDEX 4.2 (0.0-2.9); CREATINE KINASE MB 17.4 ng/mL (0-3.6)
[2023-08-07 16:49] LABS: BLOOD GAS HCO3 18.6 mmol/L (21.0-27.0); BLOOD GAS PCO2 38.4 mmHg (32.0-45.0); BLOOD GAS PH 7.303 (7.350-7.450); BLOOD GAS PO2 86.1 mmHg (75.0-100.0)
[2023-08-07 16:50] LABS: ABG O2 SAT% ESTIMATE 95.7 % (94.0-100.0); ALLEN'S TEST POSITIVE (P); BLOOD GAS BASE EXCESS -7.1 mmol/L (-3.0-3.0)
[2023-08-07 18:05] LABS: INR 1.1 (0.80-1.20); PROTHROMBIN TIME 11.8 SECS (9.5-12.5)
[2023-08-07] MEDS ORDERED: HYDR-3917 PO (18:34)
[2023-08-07] MEDS ORDERED: MORPHINE 4 MG INJ. 4 MG/ML VIAL IVP ONE (19:15)
[2023-08-07] MEDS ORDERED: ceFAZolin SODIUM 2 GM VIAL IM SCH (21:00)
[2023-08-07] MEDS: CEFAZOLIN SOD 1 GM/ ISO 50 ML PREMIX IV SCH (21:19)
[2023-08-07 21:36] VITALS: BP_SYST 120; PULSE 61; RESP 20; TEMP 97.2; O2SAT 96
[2023-08-07 21:40] VITALS: BP_SYST 120; PULSE 61; RESP 20; TEMP 97.2; O2SAT 96
[2023-08-07] MEDS: QUEtiapine FUMARATE 25 MG TABLET PO SCH (22:20)
[2023-08-07] MEDS: GABAPENTIN 100 MG CAPSULE PO SCH (22:20)
[2023-08-08] VITALS (9 sets, daily range): BP systolic 104–179; PULSE 64–109; RESP 15–20; TEMP 97–98.9; O2SAT 93–99
[2023-08-08] MEDS: HYDROmorphone 1 MG/ML INJ. CARTRIDGE IVP PRN ×2 (05:51→14:37)
[2023-08-08] MEDS ORDERED: NALOXONE HCL 0.4 MG/ML AMP (NARCAN) IVP PRN (09:15)
[2023-08-08] MEDS ORDERED: HYDROcodone/ACETAMIN 5-325 MG TAB (NORCO/ VICODIN) PO PRN (09:15)
[2023-08-08] MEDS ORDERED: ACETAMINOPHEN 500 MG TABLET PO PRN (09:15)
[2023-08-08] MEDS: GABAPENTIN 100 MG CAPSULE PO SCH ×3 (09:17→21:01)
[2023-08-08] MEDS ORDERED: lisinopriL 5 MG TABLET PO ONE (10:15)
[2023-08-08] MEDS ORDERED: QUEtiapine FUMARATE 25 MG TABLET PO ONE (10:15)
[2023-08-08] MEDS ORDERED: METOPROLOL TARTRATE 50 MG TABLET PO ONE (10:15)
[2023-08-08] MEDS ORDERED: NIFEdipine 30 MG TAB.ER.24 PO ONE (10:15)
[2023-08-08] MEDS ORDERED: SERTRALINE HCL 50 MG TABLET PO ONE (10:15)
[2023-08-08] MEDS ORDERED: guaiFENesin ER 600 MG TAB PO ONE (10:15)
[2023-08-08] MEDS: CALCIUM ACETATE 667 MG CAP PO SCH ×2 (11:18→17:09)
[2023-08-08] MEDS: SEVELAMER CARBONATE 800 MG TABLET PO SCH ×2 (11:20→17:09)
[2023-08-08] MEDS: traMADol HCL HCL 50 MG TABLET (ULTRAM) PO PRN (16:25)
[2023-08-08] MEDS ORDERED: HONEY WOUND DRESSING 1 EACH TP ONE (16:30)
[2023-08-08] MEDS ORDERED: QUEtiapine FUMARATE 25 MG TABLET PO SCH (21:00)
[2023-08-08] MEDS ORDERED: HEPARIN SODIUM,PORCINE 5,000 UNITS/ML VIAL SUBCUT SCH (21:00)
[2023-08-08] MEDS: QUEtiapine FUMARATE 25 MG TABLET PO SCH (21:01)
[2023-08-08] MEDS: METOPROLOL TARTRATE 50 MG TABLET PO SCH (21:02)
[2023-08-08] MEDS: guaiFENesin ER 600 MG TAB PO SCH (21:02)
[2023-08-08] MEDS: CEFAZOLIN SOD 1 GM/ ISO 50 ML PREMIX IV SCH (21:49)
[2023-08-09] MEDS: HYDROmorphone 1 MG/ML INJ. CARTRIDGE IVP PRN ×2 (01:22→15:37)
[2023-08-09 05:12] LABS: BASOPHILS # (AUTO) 0.1 K/uL (0.0-0.2); BASOPHILS % (AUTO) 2.2 % (0.0-2.0); EOSINOPHILS # (AUTO) 0.2 K/uL (0.0-0.4); EOSINOPHILS % (AUTO) 3.3 % (0.0-4.0); HEMATOCRIT 35.4 % (36-54); LYMPHOCYTES # (AUTO) 0.8 K/uL (1.0-5.5); LYMPHOCYTES % (AUTO) 14.8 % (20.5-51.5); MEAN CORPUSCULAR HEMOGLOBIN 31 pg (27-31); MEAN CORPUSCULAR HGB CONC 31 % (32-36); MEAN CORPUSCULAR VOLUME 98 fL (79.0-98.0); MONOCYTES # (AUTO) 0.9 K/uL (0.0-1.0); MONOCYTES % (AUTO) 15.2 % (1.7-9.3); NEUTROPHILS # (AUTO) 3.7 K/uL (1.8-7.7); NEUTROPHILS % (AUTO) 64.5 % (40.0-70.0); PLATELET COUNT (AUTO) 107 K/uL (130-430); RED BLOOD CELL COUNT(AUTO) 3.59 MIL/uL (4.2-6.2); RED CELL DISTRIBUTION WIDTH 15.7 % (9.0-15.0); WHITE BLOOD COUNT (AUTO) 5.8 K/uL (4.8-10.8)
[2023-08-09 05:48] LABS: ANION GAP 16 (5-15); CALCIUM 7.9 mg/dL (8.4-11.0); CARBON DIOXIDE 26 mmol/L (23-29); CHLORIDE 97 mmol/L (98-107); GLUCOSE 132 mg/dL (74-106); POTASSIUM 5.2 mmol/L (3.5-5.1); SODIUM SERUM 139 mmol/L (136-145); UREA NITROGEN, BLOOD 74 mg/dL (8-21)
[2023-08-09 05:54] LABS: CREATININE 11.96 mg/dL (0.55-1.30)
[2023-08-09] MEDS: lisinopriL 5 MG TABLET PO SCH (08:24)
[2023-08-09] MEDS: SERTRALINE HCL 50 MG TABLET PO SCH (08:24)
[2023-08-09] MEDS: SEVELAMER CARBONATE 800 MG TABLET PO SCH ×3 (08:24→18:14)
[2023-08-09] MEDS: CALCIUM ACETATE 667 MG CAP PO SCH ×3 (08:24→18:14)
[2023-08-09] MEDS: guaiFENesin ER 600 MG TAB PO SCH ×2 (08:24→20:33)
[2023-08-09] MEDS: NIFEdipine 30 MG TAB.ER.24 PO SCH (08:25)
[2023-08-09] MEDS: METOPROLOL TARTRATE 50 MG TABLET PO SCH ×2 (08:25→20:34)
[2023-08-09] MEDS: HONEY WOUND DRESSING 1 EACH TP SCH (08:26)
[2023-08-09] MEDS: GABAPENTIN 100 MG CAPSULE PO SCH ×3 (08:30→20:34)
[2023-08-09 09:37] LABS: INR 1.1 (0.80-1.20); PROTHROMBIN TIME 11.6 SECS (9.5-12.5)
[2023-08-09 11:12] VITALS: O2SAT 98
[2023-08-09 11:22] VITALS: BP_SYST 147; PULSE 99; RESP 19; TEMP 97.1; O2SAT 93
[2023-08-09] MEDS ORDERED: VANCOMYCIN HCL 1,000 MG in NS 250 ML IV ONE (14:00)
[2023-08-09 15:20] VITALS: BP_SYST 163; PULSE 66; RESP 15; TEMP 97.7; O2SAT 99
[2023-08-09] MEDS: traMADol HCL HCL 50 MG TABLET (ULTRAM) PO PRN (16:51)
[2023-08-09 20:00] VITALS: BP_SYST 167; PULSE 83; RESP 18; TEMP 98; O2SAT 98
[2023-08-09] MEDS: QUEtiapine FUMARATE 25 MG TABLET PO SCH (20:34)
[2023-08-09] MEDS: CEFAZOLIN SOD 1 GM/ ISO 50 ML PREMIX IV SCH (21:43)
[2023-08-10] VITALS (8 sets, daily range): BP systolic 141–170; PULSE 65–92; RESP 16–22; TEMP 97.1–98.7; O2SAT 92–98
[2023-08-10] MEDS: traMADol HCL HCL 50 MG TABLET (ULTRAM) PO PRN ×2 (00:52→21:09)
[2023-08-10] MEDS: HYDROmorphone 1 MG/ML INJ. CARTRIDGE IVP PRN (01:50)
[2023-08-10] MEDS ORDERED: DIPHENHYDRAMINE HCL 12.5 MG/5 ML UDC PO ONE (03:45)
[2023-08-10] MEDS ORDERED: ONDANSETRON HCL 4 MG/2 ML VIAL IVP PRN (03:45)
[2023-08-10 06:02] LABS: ERYTHROCYTE SEDIMENTATION RATE 5 MM/HR (0-15)
[2023-08-10 06:06] LABS: BASOPHILS # (AUTO) 0.1 K/uL (0.0-0.2); BASOPHILS % (AUTO) 0.8 % (0.0-2.0); EOSINOPHILS % (AUTO) 0.5 % (0.0-4.0); HEMOGLOBIN 12.2 g/dL (14.0-18.0); LYMPHOCYTES # (AUTO) 0.8 K/uL (1.0-5.5); LYMPHOCYTES % (AUTO) 9.3 % (20.5-51.5); MEAN CORPUSCULAR HEMOGLOBIN 31 pg (27-31); MEAN CORPUSCULAR HGB CONC 30 % (32-36); MEAN CORPUSCULAR VOLUME 101 fL (79.0-98.0); MONOCYTES % (AUTO) 12.5 % (1.7-9.3); NEUTROPHILS # (AUTO) 6.3 K/uL (1.8-7.7); NEUTROPHILS % (AUTO) 76.9 % (40.0-70.0); PLATELET COUNT (AUTO) 119 K/uL (130-430); RED BLOOD CELL COUNT(AUTO) 3.98 MIL/uL (4.2-6.2); RED CELL DISTRIBUTION WIDTH 16.1 % (9.0-15.0); WHITE BLOOD COUNT (AUTO) 8.1 K/uL (4.8-10.8)
[2023-08-10 06:32] LABS: ALANINE AMINOTRANSFERASE 14 U/L (12-78); ALBUMIN 3.9 g/dL (3.4-4.8); ANION GAP 19 (5-15); ASPARTATE AMINOTRANSFERASE 22 U/L (10-37); CARBON DIOXIDE 25 mmol/L (23-29); CHLORIDE 96 mmol/L (98-107); GLUCOSE 200 mg/dL (74-106); SODIUM SERUM 140 mmol/L (136-145); TOTAL BILIRUBIN 0.6 mg/dL (0.0-1.0); TOTAL PROTEIN, SERUM 7.7 g/dL (6.4-8.3); UREA NITROGEN, BLOOD 63 mg/dL (8-21); VANCOMYCIN,RANDOM 8.7 ug/mL (20.0-30.0)
[2023-08-10 06:36] LABS: CREATININE 10.91 mg/dL (0.55-1.30)
[2023-08-10] MEDS: HONEY WOUND DRESSING 1 EACH TP SCH (09:00)
[2023-08-10] MEDS: GABAPENTIN 100 MG CAPSULE PO SCH ×2 (09:00→15:00)
[2023-08-10] MEDS ORDERED: hydrALAZINE HCL 25 MG TABLET PO ONE (09:15)
[2023-08-10] MEDS: guaiFENesin ER 600 MG TAB PO SCH ×2 (10:30→20:53)
[2023-08-10] MEDS: SEVELAMER CARBONATE 800 MG TABLET PO SCH ×3 (10:30→18:38)
[2023-08-10] MEDS: SERTRALINE HCL 50 MG TABLET PO SCH (10:31)
[2023-08-10] MEDS: lisinopriL 5 MG TABLET PO SCH (10:31)
[2023-08-10] MEDS: METOPROLOL TARTRATE 50 MG TABLET PO SCH ×2 (10:32→20:53)
[2023-08-10] MEDS: CALCIUM ACETATE 667 MG CAP PO SCH ×3 (10:48→18:38)
[2023-08-10] MEDS: NIFEdipine 30 MG TAB.ER.24 PO SCH (10:49)
[2023-08-10] MEDS ORDERED: VANCOMYCIN HCL 1,250 MG in NS 250 ML IV ONE (12:00)
[2023-08-10] MEDS: hydrALAZINE HCL 25 MG TABLET PO SCH (18:37)
[2023-08-10] MEDS: QUEtiapine FUMARATE 25 MG TABLET PO SCH (20:54)
[2023-08-10] MEDS: CEFAZOLIN SOD 1 GM/ ISO 50 ML PREMIX IV SCH (21:52)
[2023-08-11] MEDS: hydrALAZINE HCL 25 MG TABLET PO SCH ×4 (00:58→21:22)
[2023-08-11 01:04] VITALS: BP_SYST 151; PULSE 68; RESP 16; TEMP 97.7; O2SAT 90
[2023-08-11 06:42] LABS: BASOPHILS % (AUTO) 0.3 % (0.0-2.0); EOSINOPHILS % (AUTO) 0.2 % (0.0-4.0); HEMATOCRIT 36.8 % (36-54); HEMOGLOBIN 11.3 g/dL (14.0-18.0); LYMPHOCYTES # (AUTO) 0.5 K/uL (1.0-5.5); LYMPHOCYTES % (AUTO) 6.7 % (20.5-51.5); MEAN CORPUSCULAR HEMOGLOBIN 31 pg (27-31); MEAN CORPUSCULAR HGB CONC 31 % (32-36); MEAN CORPUSCULAR VOLUME 99 fL (79.0-98.0); MONOCYTES # (AUTO) 0.9 K/uL (0.0-1.0); MONOCYTES % (AUTO) 13.1 % (1.7-9.3); NEUTROPHILS # (AUTO) 5.4 K/uL (1.8-7.7); NEUTROPHILS % (AUTO) 79.7 % (40.0-70.0); PLATELET COUNT (AUTO) 78 K/uL (130-430); RED CELL DISTRIBUTION WIDTH 15.8 % (9.0-15.0); WHITE BLOOD COUNT (AUTO) 6.8 K/uL (4.8-10.8)
[2023-08-11] MEDS: traMADol HCL HCL 50 MG TABLET (ULTRAM) PO PRN ×2 (06:45→21:22)
[2023-08-11 06:48] LABS: ALANINE AMINOTRANSFERASE 187 U/L (12-78); ALBUMIN 3.7 g/dL (3.4-4.8); ANION GAP 21 (5-15); ASPARTATE AMINOTRANSFERASE 479 U/L (10-37); CALCIUM 7.7 mg/dL (8.4-11.0); CARBON DIOXIDE 23 mmol/L (23-29); CHLORIDE 96 mmol/L (98-107); GLUCOSE 142 mg/dL (74-106); SODIUM SERUM 140 mmol/L (136-145); TOTAL BILIRUBIN 0.7 mg/dL (0.0-1.0); TOTAL PROTEIN, SERUM 7.1 g/dL (6.4-8.3); UREA NITROGEN, BLOOD 79 mg/dL (8-21); VANCOMYCIN,RANDOM 21.1 ug/mL (20.0-30.0)
[2023-08-11 06:52] LABS: CREATININE 11.55 mg/dL (0.55-1.30); POTASSIUM 5.9 mmol/L (3.5-5.1)
[2023-08-11 07:55] VITALS: PULSE 66; O2SAT 95
[2023-08-11 08:00] VITALS: BP_SYST 144; PULSE 74; RESP 18; TEMP 97.7; O2SAT 92; O2SAT 94
[2023-08-11] MEDS: CALCIUM ACETATE 667 MG CAP PO SCH ×3 (08:37→18:00)
[2023-08-11] MEDS: SEVELAMER CARBONATE 800 MG TABLET PO SCH ×3 (08:38→18:00)
[2023-08-11] MEDS: SERTRALINE HCL 50 MG TABLET PO SCH (08:38)
[2023-08-11] MEDS: guaiFENesin ER 600 MG TAB PO SCH ×2 (08:38→21:20)
[2023-08-11] MEDS: METOPROLOL TARTRATE 50 MG TABLET PO SCH ×2 (09:00→21:21)
[2023-08-11] MEDS: NIFEdipine 30 MG TAB.ER.24 PO SCH (09:00)
[2023-08-11] MEDS: HONEY WOUND DRESSING 1 EACH TP SCH (09:00)
[2023-08-11] MEDS: lisinopriL 5 MG TABLET PO SCH (09:00)
[2023-08-11 12:00] VITALS: BP_SYST 143; PULSE 71; RESP 19; TEMP 97.1; O2SAT 93
[2023-08-11] MEDS ORDERED: hydrALAZINE HCL 25 MG TABLET PO ONE (12:00)
[2023-08-11 16:00] VITALS: BP_SYST 140; RESP 18; O2SAT 94
[2023-08-11] MEDS ORDERED: LORazepam 2 MG/ML VIAL IM ONE (19:00)
[2023-08-11] MEDS ORDERED: LORazepam 2 MG/ML VIAL ONE (19:55)
[2023-08-11 20:00] VITALS: BP_SYST 147; PULSE 85; RESP 18; TEMP 98.5; O2SAT 95
[2023-08-11] MEDS: CEFAZOLIN SOD 1 GM/ ISO 50 ML PREMIX IV SCH (21:00)
[2023-08-11] MEDS: QUEtiapine FUMARATE 25 MG TABLET PO SCH (21:20)
[2023-08-12] VITALS (7 sets, daily range): BP systolic 134–157; PULSE 77–85; RESP 15–18; TEMP 96.1–97.8; O2SAT 93–100
[2023-08-12] MEDS: hydrALAZINE HCL 25 MG TABLET PO SCH ×6 (05:58→22:00)
[2023-08-12] MEDS: SEVELAMER CARBONATE 800 MG TABLET PO SCH ×3 (08:00→17:50)
[2023-08-12] MEDS: CALCIUM ACETATE 667 MG CAP PO SCH ×3 (08:00→17:50)
[2023-08-12] MEDS: lisinopriL 5 MG TABLET PO SCH (09:00)
[2023-08-12] MEDS: guaiFENesin ER 600 MG TAB PO SCH ×3 (09:00→21:14)
[2023-08-12] MEDS: METOPROLOL TARTRATE 50 MG TABLET PO SCH ×3 (09:00→21:14)
[2023-08-12] MEDS: SERTRALINE HCL 50 MG TABLET PO SCH (09:00)
[2023-08-12] MEDS: HONEY WOUND DRESSING 1 EACH TP SCH (09:00)
[2023-08-12] MEDS: NIFEdipine 30 MG TAB.ER.24 PO SCH (09:00)
[2023-08-12] MEDS ORDERED: BISACODYL 10 MG/SUPPOSITORY RC PRN (20:30)
[2023-08-12] MEDS: CEFAZOLIN SOD 1 GM/ ISO 50 ML PREMIX IV SCH (21:00)
[2023-08-12] MEDS: QUEtiapine FUMARATE 25 MG TABLET PO SCH ×2 (21:00→21:14)
[2023-08-12] MEDS ORDERED: HALOPERIDOL LACTATE 5 MG/ML VIAL IM ONE (21:45)
[2023-08-13 00:53] VITALS: BP_SYST 156; PULSE 94; RESP 16; TEMP 97.6; O2SAT 97
[2023-08-13] MEDS: hydrALAZINE HCL 25 MG TABLET PO SCH ×3 (06:00→14:00)
[2023-08-13 07:48] LABS: ANION GAP 17 (5-15); CARBON DIOXIDE 25 mmol/L (23-29); CHLORIDE 94 mmol/L (98-107); GLUCOSE 132 mg/dL (74-106); POTASSIUM 4.4 mmol/L (3.5-5.1); SODIUM SERUM 136 mmol/L (136-145); UREA NITROGEN, BLOOD 69 mg/dL (8-21); VANCOMYCIN,RANDOM 16.4 ug/mL (20.0-30.0)
[2023-08-13 07:51] LABS: CREATININE 9.87 mg/dL (0.55-1.30)
[2023-08-13 08:24] LABS: BASOPHILS # (AUTO) 0.1 K/uL (0.0-0.2); BASOPHILS % (AUTO) 0.8 % (0.0-2.0); EOSINOPHILS # (AUTO) 0.2 K/uL (0.0-0.4); EOSINOPHILS % (AUTO) 1.7 % (0.0-4.0); HEMATOCRIT 38.1 % (36-54); LYMPHOCYTES % (AUTO) 11.3 % (20.5-51.5); MEAN CORPUSCULAR HEMOGLOBIN 31 pg (27-31); MEAN CORPUSCULAR HGB CONC 32 % (32-36); MEAN CORPUSCULAR VOLUME 98 fL (79.0-98.0); MONOCYTES # (AUTO) 1.1 K/uL (0.0-1.0); MONOCYTES % (AUTO) 12.8 % (1.7-9.3); NEUTROPHILS # (AUTO) 6.4 K/uL (1.8-7.7); NEUTROPHILS % (AUTO) 73.4 % (40.0-70.0); RED BLOOD CELL COUNT(AUTO) 3.91 MIL/uL (4.2-6.2); RED CELL DISTRIBUTION WIDTH 15.7 % (9.0-15.0); WHITE BLOOD COUNT (AUTO) 8.7 K/uL (4.8-10.8)
[2023-08-13 08:30] VITALS: O2SAT 97
[2023-08-13 08:37] LABS: ERYTHROCYTE SEDIMENTATION RATE 4 MM/HR (0-15)
[2023-08-13] MEDS: SEVELAMER CARBONATE 800 MG TABLET PO SCH ×2 (09:23→11:39)
[2023-08-13] MEDS: NIFEdipine 30 MG TAB.ER.24 PO SCH (09:24)
[2023-08-13] MEDS: SERTRALINE HCL 50 MG TABLET PO SCH (09:27)
[2023-08-13] MEDS: METOPROLOL TARTRATE 50 MG TABLET PO SCH (09:27)
[2023-08-13] MEDS: lisinopriL 5 MG TABLET PO SCH (09:28)
[2023-08-13] MEDS: CALCIUM ACETATE 667 MG CAP PO SCH ×2 (09:28→11:39)
[2023-08-13] MEDS: guaiFENesin ER 600 MG TAB PO SCH (09:28)
[2023-08-13] MEDS: HONEY WOUND DRESSING 1 EACH TP SCH (09:41)
[2023-08-13 11:19] VITALS: BP_SYST 141; PULSE 100; RESP 16; TEMP 97.1; O2SAT 93
[2023-08-13 11:37] LABS: PLATELET COUNT (AUTO) 95 K/uL (130-430)
[2023-08-13 15:09] VITALS: BP_SYST 99; PULSE 60; RESP 16; TEMP 97; O2SAT 92
[2023-08-13 16:58] VITALS: BP_SYST 147; PULSE 84; RESP 17; TEMP 97.9; O2SAT 97
== END 2023-08-13 17:55 | DRG 871 ==
LOC: SED 15:03 → SMU 19:25
PROVIDERS: ADMIT Specialist; ATTEND Specialist
PROC: 5A1D70Z Performance of Urinary Filtration, Intermittent, Less than 6 Hours Per Day (ICD-10-PCS; principal; 2023-08-08)
PROC: 5A1D70Z Performance of Urinary Filtration, Intermittent, Less than 6 Hours Per Day (ICD-10-PCS; 2023-08-09)
PROC: 5A1D70Z Performance of Urinary Filtration, Intermittent, Less than 6 Hours Per Day (ICD-10-PCS; 2023-08-11)
PROC: 5A1D70Z Performance of Urinary Filtration, Intermittent, Less than 6 Hours Per Day (ICD-10-PCS; 2023-08-12)
DX: A41.9 Sepsis, unspecified organism (principal); G93.41 Metabolic encephalopathy; N18.6 End stage renal disease; I50.33 Acute on chronic diastolic (congestive) heart failure; N17.0 Acute kidney failure with tubular necrosis; L03.115 Cellulitis of right lower limb; I13.2 Hypertensive heart and chronic kidney disease with heart failure and with stage 5 chronic kidney disease, or end stage renal disease; J44.1 Chronic obstructive pulmonary disease with (acute) exacerbation; M31.8 Other specified necrotizing vasculopathies; L03.116 Cellulitis of left lower limb; E11.40 Type 2 diabetes mellitus with diabetic neuropathy, unspecified; E11.22 Type 2 diabetes mellitus with diabetic chronic kidney disease; D69.6 Thrombocytopenia, unspecified; D63.1 Anemia in chronic kidney disease; I89.0 Lymphedema, not elsewhere classified; E11.65 Type 2 diabetes mellitus with hyperglycemia; E11.51 Type 2 diabetes mellitus with diabetic peripheral angiopathy without gangrene; E83.41 Hypermagnesemia; E83.52 Hypercalcemia; E83.39 Other disorders of phosphorus metabolism; Z79.2 Long term (current) use of antibiotics; Z79.899 Other long term (current) drug therapy; Z79.01 Long term (current) use of anticoagulants; Z91.158 Patient's noncompliance with renal dialysis for other reason
CPT/HCPCS: 36415; 36600; 71045; 73590-TC; 80048; 80053; 80202; 82550; 82553; 82800-TC; 82803; 82962; 83690; 83735; 83880; 84100; 85025; 85379; 85384; 85610-TC; 85651-TC; 85730-TC; 87040; 87081; 90935; 90937; 93005; 93923; 93970; 97110-GP; 97530-GP; 99285; J0690; J1170; J1630; J1644; J2060; J2270; J2405; J3370; J7050

== ENCOUNTER 2023-08-31 17:28 | Inpatient (IN) | payer BC ==
[~2023-08-31] VITALS: Ht 172.7 cm; Wt 99.0 kg
[2023-08-31 17:28] VITALS: BP_SYST 115; PULSE 65; RESP 18; TEMP 98.8; O2SAT 94
[~2023-08-31 17:28] MED LIST changes: +ACET-2634 PO; +HYDR-3917 PO; +SERT-436 PO
[2023-08-31] MEDS ORDERED: cefTRIAXone 1 GM IVPB PREMIX 50 ML IV ONE (18:15)
[2023-08-31 20:04] LABS: BASOPHILS # (AUTO) 0.1 K/uL (0.0-0.2); BASOPHILS % (AUTO) 2.2 % (0.0-2.0); EOSINOPHILS # (AUTO) 0.2 K/uL (0.0-0.4); HEMATOCRIT 36.3 % (36-54); HEMOGLOBIN 11.3 g/dL (14.0-18.0); LYMPHOCYTES # (AUTO) 0.7 K/uL (1.0-5.5); MEAN CORPUSCULAR HEMOGLOBIN 31 pg (27-31); MEAN CORPUSCULAR HGB CONC 31 % (32-36); MEAN CORPUSCULAR VOLUME 100 fL (79.0-98.0); MONOCYTES # (AUTO) 0.6 K/uL (0.0-1.0); MONOCYTES % (AUTO) 9.7 % (1.7-9.3); NEUTROPHILS # (AUTO) 4.4 K/uL (1.8-7.7); NEUTROPHILS % (AUTO) 73.1 % (40.0-70.0); PLATELET COUNT (AUTO) 130 K/uL (130-430); RED BLOOD CELL COUNT(AUTO) 3.64 MIL/uL (4.2-6.2)
[2023-08-31 21:40] LABS: ALANINE AMINOTRANSFERASE 19 U/L (12-78); ALBUMIN 3.6 g/dL (3.4-4.8); ANION GAP 18 (5-15); ASPARTATE AMINOTRANSFERASE 20 U/L (10-37); BILIRUBIN,DIRECT 0.2 mg/dL (0.0-0.3); CALCIUM 8.1 mg/dL (8.4-11.0); CARBON DIOXIDE 21 mmol/L (23-29); CHLORIDE 100 mmol/L (98-107); GLUCOSE 144 mg/dL (74-106); SODIUM SERUM 139 mmol/L (136-145); TOTAL BILIRUBIN 0.5 mg/dL (0.0-1.0); TOTAL PROTEIN, SERUM 7.3 g/dL (6.4-8.3)
[2023-08-31 21:44] LABS: CREATININE 13.26 mg/dL (0.55-1.30); POTASSIUM 7.8 mmol/L (3.5-5.1); UREA NITROGEN, BLOOD 139 mg/dL (8-21)
[2023-08-31] MEDS ORDERED: CALCIUM CHLORIDE 1 GM/10ML VIAL (13.6 mEq Ca++/VIAL) IV ONE (22:00)
[2023-08-31] MEDS ORDERED: INSULIN REGULAR, HUMAN 10 UNITS/0.1 ML, 3 ML VIAL IVP ONE (22:00)
[2023-08-31] MEDS ORDERED: DEXTROSE 50% JECT 50 ML DISP.SYRIN IVP ONE (22:00)
[2023-08-31] MEDS ORDERED: SODIUM BICARBONATE 8.4% JECT 50 MEQ/50 ML SYRINGE IVP ONE (22:00)
[2023-08-31] MEDS ORDERED: SODIUM POLYSTYRENE SULFONATE 15 GM/60 ML UDBTL PO ONE (22:00)
[2023-08-31] MEDS ORDERED: ACETAMINOPHEN 325 MG TABLET PO PRN (22:00)
[2023-08-31] MEDS ORDERED: GLUCOSE (DEXTROSE) ORAL GEL -Adults PO PRN (22:15)
[2023-08-31] MEDS ORDERED: DEXTROSE 50% JECT 50 ML DISP.SYRIN IVP PRN (22:15)
[2023-08-31] MEDS ORDERED: LORA-258 PO (22:30)
[2023-08-31] MEDS ORDERED: METO100T14 PO (22:35)
[2023-08-31] MEDS ORDERED: INSU100V SUBCUT (22:35)
[2023-08-31] MEDS ORDERED: HYDR-4272 PO (22:35)
[2023-08-31] MEDS ORDERED: QUET50TA15 PO (22:35)
[2023-08-31] MEDS ORDERED: CALC600T2 PO (22:35)
[2023-08-31] MEDS ORDERED: SERT25TA PO (22:35)
[2023-08-31] MEDS ORDERED: NIFE90TA24 PO (22:35)
[2023-08-31] MEDS ORDERED: REN800 PO (22:35)
[2023-08-31 23:19] LABS: INR 1.1 (0.80-1.20); PROTHROMBIN TIME 11.3 SECS (9.5-12.5)
[2023-08-31 23:22] VITALS: BP_SYST 99; PULSE 79; RESP 22; TEMP 97.6; O2SAT 98
[2023-09-01] VITALS (22 sets, daily range): BP systolic 113–183; PULSE 56–89; RESP 14–22; TEMP 97.6–98; O2SAT 90–100
[2023-09-01] MEDS: MORPHINE 2 MG/ML INJ. SYRINGE IVP PRN ×2 (01:01→20:06)
[2023-09-01] MEDS: ONDANSETRON HCL 4 MG/2 ML VIAL IVP PRN ×3 (01:01→20:07)
[2023-09-01 05:31] LABS: HEMOGLOBIN A1C 6.59 % (<5.7)
[2023-09-01 05:42] LABS: ANION GAP 16 (5-15); CALCIUM 8.6 mg/dL (8.4-11.0); CARBON DIOXIDE 24 mmol/L (23-29); CHLORIDE 99 mmol/L (98-107); GLUCOSE 145 mg/dL (74-106); POTASSIUM 5.3 mmol/L (3.5-5.1); SODIUM SERUM 139 mmol/L (136-145); UREA NITROGEN, BLOOD 96 mg/dL (8-21)
[2023-09-01 07:45] LABS: BASOPHILS # (AUTO) 0.1 K/uL (0.0-0.2); BASOPHILS % (AUTO) 1.1 % (0.0-2.0); EOSINOPHILS # (AUTO) 0.1 K/uL (0.0-0.4); EOSINOPHILS % (AUTO) 2.2 % (0.0-4.0); HEMATOCRIT 33.5 % (36-54); HEMOGLOBIN 10.4 g/dL (14.0-18.0); LYMPHOCYTES # (AUTO) 0.5 K/uL (1.0-5.5); LYMPHOCYTES % (AUTO) 9.2 % (20.5-51.5); MEAN CORPUSCULAR HEMOGLOBIN 31 pg (27-31); MEAN CORPUSCULAR HGB CONC 31 % (32-36); MEAN CORPUSCULAR VOLUME 99 fL (79.0-98.0); MONOCYTES # (AUTO) 0.8 K/uL (0.0-1.0); MONOCYTES % (AUTO) 13.5 % (1.7-9.3); NEUTROPHILS # (AUTO) 4.3 K/uL (1.8-7.7); PLATELET COUNT (AUTO) 115 K/uL (130-430); RED BLOOD CELL COUNT(AUTO) 3.37 MIL/uL (4.2-6.2); RED CELL DISTRIBUTION WIDTH 16.6 % (9.0-15.0); WHITE BLOOD COUNT (AUTO) 5.9 K/uL (4.8-10.8)
[2023-09-01 08:04] LABS: CREATININE 9.76 mg/dL (0.55-1.30)
[2023-09-01] MEDS ORDERED: NIFEDIPINE 90 MG TABLET.SA (PROCARDIA XL 90 MG) PO ONE (10:00)
[2023-09-01] MEDS ORDERED: METOPROLOL TARTRATE 50 MG TABLET PO ONE (10:00)
[2023-09-01] MEDS: INSULIN LISPRO SLIDING SCALE 100 UNITS/ML, 3 ML VIAL (humaLOG) SUBCUT PRN (11:53)
[2023-09-01 12:59] LABS: ANION GAP 17 (5-15); CALCIUM 8.2 mg/dL (8.4-11.0); CARBON DIOXIDE 22 mmol/L (23-29); CHLORIDE 98 mmol/L (98-107); GLUCOSE 150 mg/dL (74-106); SODIUM SERUM 137 mmol/L (136-145); UREA NITROGEN, BLOOD 96 mg/dL (8-21)
[2023-09-01 13:00] LABS: ALANINE AMINOTRANSFERASE 9 U/L (12-78); ALBUMIN 3.4 g/dL (3.4-4.8); ASPARTATE AMINOTRANSFERASE 23 U/L (10-37); PHOSPHORUS 6.8 mg/dL (2.7-4.5); TOTAL BILIRUBIN 0.6 mg/dL (0.0-1.0); TOTAL PROTEIN, SERUM 6.8 g/dL (6.4-8.3)
[2023-09-01 13:03] LABS: CREATININE 10.11 mg/dL (0.55-1.30)
[2023-09-01] MEDS: SEVELAMER CARBONATE 800 MG TABLET PO SCH ×2 (14:07→20:59)
[2023-09-01] MEDS: HYDROcodone/ACETAMIN 10-325 MG TAB PO PRN ×2 (14:08→17:42)
[2023-09-01] MEDS ORDERED: QUET50TA24 PO (14:45)
[2023-09-01] MEDS ORDERED: OLANZapine IntraMuscular 10 MG VIAL (FOR I.M. INJECTION ONLY) IM PRN (15:45)
[2023-09-01 18:53] LABS: ANION GAP 13 (5-15); CALCIUM 7.5 mg/dL (8.4-11.0); CARBON DIOXIDE 23 mmol/L (23-29); CHLORIDE 100 mmol/L (98-107); GLUCOSE 136 mg/dL (74-106); SODIUM SERUM 136 mmol/L (136-145); UREA NITROGEN, BLOOD 97 mg/dL (8-21)
[2023-09-01 19:22] LABS: CREATININE 10.31 mg/dL (0.55-1.30)
[2023-09-01 19:25] LABS: POTASSIUM 5.8 mmol/L (3.5-5.1)
[2023-09-01] MEDS: QUEtiapine FUMARATE 25 MG TABLET PO SCH ×2 (20:06→21:00)
[2023-09-01] MEDS: SERTRALINE HCL 50 MG TABLET PO SCH ×2 (20:07→21:00)
[2023-09-01] MEDS ORDERED: LORazepam 1 MG TABLET PO ONE (20:15)
[2023-09-01] MEDS: HALOPERIDOL LACTATE 5 MG/ML VIAL IM PRN (20:45)
[2023-09-01] MEDS: METOPROLOL TARTRATE 50 MG TABLET PO SCH (20:59)
[2023-09-02] VITALS (15 sets, daily range): BP systolic 113–160; PULSE 60–87; RESP 12–21; TEMP 97.6–99; O2SAT 91–96
[2023-09-02] MEDS: HALOPERIDOL LACTATE 5 MG/ML VIAL IM PRN (04:40)
[2023-09-02 08:14] LABS: BASOPHILS # (AUTO) 0.1 K/uL (0.0-0.2); EOSINOPHILS # (AUTO) 0.1 K/uL (0.0-0.4); EOSINOPHILS % (AUTO) 2.8 % (0.0-4.0); HEMATOCRIT 33.3 % (36-54); HEMOGLOBIN 10.4 g/dL (14.0-18.0); LYMPHOCYTES # (AUTO) 0.7 K/uL (1.0-5.5); LYMPHOCYTES % (AUTO) 16.9 % (20.5-51.5); MEAN CORPUSCULAR HEMOGLOBIN 31 pg (27-31); MEAN CORPUSCULAR HGB CONC 31 % (32-36); MEAN CORPUSCULAR VOLUME 99 fL (79.0-98.0); MONOCYTES # (AUTO) 0.7 K/uL (0.0-1.0); MONOCYTES % (AUTO) 16.7 % (1.7-9.3); NEUTROPHILS # (AUTO) 2.7 K/uL (1.8-7.7); NEUTROPHILS % (AUTO) 61.6 % (40.0-70.0); PLATELET COUNT (AUTO) 97 K/uL (130-430); RED BLOOD CELL COUNT(AUTO) 3.37 MIL/uL (4.2-6.2); WHITE BLOOD COUNT (AUTO) 4.4 K/uL (4.8-10.8)
[2023-09-02 08:25] LABS: ALANINE AMINOTRANSFERASE 3 U/L (12-78); ALBUMIN 3.1 g/dL (3.4-4.8); ANION GAP 10 (5-15); ASPARTATE AMINOTRANSFERASE 22 U/L (10-37); CALCIUM 7.8 mg/dL (8.4-11.0); CARBON DIOXIDE 27 mmol/L (23-29); CHLORIDE 100 mmol/L (98-107); GLUCOSE 102 mg/dL (74-106); POTASSIUM 4.2 mmol/L (3.5-5.1); SODIUM SERUM 137 mmol/L (136-145); TOTAL BILIRUBIN 0.7 mg/dL (0.0-1.0); TOTAL PROTEIN, SERUM 6.3 g/dL (6.4-8.3); UREA NITROGEN, BLOOD 62 mg/dL (8-21)
[2023-09-02 08:29] LABS: CREATININE 8.11 mg/dL (0.55-1.30)
[2023-09-02 08:44] LABS: ABG O2 SAT% ESTIMATE 95.5 % (94.0-100.0); ALLEN'S TEST POSITIVE (P); BLOOD GAS BASE EXCESS -1.3 mmol/L (-3.0-3.0); BLOOD GAS HCO3 22.6 mmol/L (21.0-27.0); BLOOD GAS PCO2 35.8 mmHg (32.0-45.0); BLOOD GAS PH 7.418 (7.350-7.450); BLOOD GAS PO2 75.7 mmHg (75.0-100.0)
[2023-09-02] MEDS: METOPROLOL TARTRATE 50 MG TABLET PO SCH ×3 (09:01→21:00)
[2023-09-02] MEDS: HYDROcodone/ACETAMIN 5-325 MG TAB (NORCO/ VICODIN) PO PRN (09:02)
[2023-09-02] MEDS: SERTRALINE HCL 50 MG TABLET PO SCH ×3 (09:03→21:00)
[2023-09-02] MEDS: SEVELAMER CARBONATE 800 MG TABLET PO SCH ×4 (09:03→21:00)
[2023-09-02] MEDS: NIFEDIPINE 90 MG TABLET.SA (PROCARDIA XL 90 MG) PO SCH (09:06)
[2023-09-02] MEDS: IPRATROPIUM/ALBUTEROL SULFATE 3 ML AMPUL.NEB (DUONEB) INH SCH ×3 (11:35→19:30)
[2023-09-02] MEDS: QUEtiapine FUMARATE 25 MG TABLET PO SCH ×2 (20:54→21:00)
[2023-09-03] VITALS (9 sets, daily range): BP systolic 110–157; PULSE 77–112; RESP 16–18; TEMP 97.5–99.1; O2SAT 93–98
[2023-09-03] MEDS: IPRATROPIUM/ALBUTEROL SULFATE 3 ML AMPUL.NEB (DUONEB) INH SCH ×6 (00:38→23:00)
[2023-09-03] MEDS: SEVELAMER CARBONATE 800 MG TABLET PO SCH ×3 (09:00→21:00)
[2023-09-03 10:48] LABS: BASOPHILS % (AUTO) 0.3 % (0.0-2.0); EOSINOPHILS # (AUTO) 0.2 K/uL (0.0-0.4); EOSINOPHILS % (AUTO) 3.1 % (0.0-4.0); HEMATOCRIT 33.4 % (36-54); HEMOGLOBIN 10.4 g/dL (14.0-18.0); LYMPHOCYTES # (AUTO) 0.9 K/uL (1.0-5.5); LYMPHOCYTES % (AUTO) 18.6 % (20.5-51.5); MEAN CORPUSCULAR HEMOGLOBIN 31 pg (27-31); MEAN CORPUSCULAR HGB CONC 31 % (32-36); MEAN CORPUSCULAR VOLUME 99 fL (79.0-98.0); MONOCYTES # (AUTO) 0.6 K/uL (0.0-1.0); MONOCYTES % (AUTO) 12.9 % (1.7-9.3); NEUTROPHILS # (AUTO) 3.2 K/uL (1.8-7.7); NEUTROPHILS % (AUTO) 65.1 % (40.0-70.0); PLATELET COUNT (AUTO) 115 K/uL (130-430); RED BLOOD CELL COUNT(AUTO) 3.38 MIL/uL (4.2-6.2); RED CELL DISTRIBUTION WIDTH 16.4 % (9.0-15.0); WHITE BLOOD COUNT (AUTO) 4.9 K/uL (4.8-10.8)
[2023-09-03 11:07] LABS: ALANINE AMINOTRANSFERASE 7 U/L (12-78); ALBUMIN 2.9 g/dL (3.4-4.8); ANION GAP 13 (5-15); ASPARTATE AMINOTRANSFERASE 19 U/L (10-37); CALCIUM 7.4 mg/dL (8.4-11.0); CARBON DIOXIDE 26 mmol/L (23-29); CHLORIDE 99 mmol/L (98-107); GLUCOSE 169 mg/dL (74-106); POTASSIUM 4.2 mmol/L (3.5-5.1); SODIUM SERUM 138 mmol/L (136-145); TOTAL BILIRUBIN 0.5 mg/dL (0.0-1.0); TOTAL PROTEIN, SERUM 6.2 g/dL (6.4-8.3); UREA NITROGEN, BLOOD 69 mg/dL (8-21)
[2023-09-03] MEDS: HYDROcodone/ACETAMIN 5-325 MG TAB (NORCO/ VICODIN) PO PRN (11:15)
[2023-09-03] MEDS: SERTRALINE HCL 50 MG TABLET PO SCH ×2 (11:15→21:00)
[2023-09-03 11:24] LABS: CREATININE 8.83 mg/dL (0.55-1.30)
[2023-09-03] MEDS: NIFEDIPINE 90 MG TABLET.SA (PROCARDIA XL 90 MG) PO SCH (13:45)
[2023-09-03] MEDS: METOPROLOL TARTRATE 50 MG TABLET PO SCH ×2 (13:47→21:00)
[2023-09-03] MEDS: QUEtiapine FUMARATE 25 MG TABLET PO SCH (21:00)
[2023-09-03] MEDS: INSULIN LISPRO SLIDING SCALE 100 UNITS/ML, 3 ML VIAL (humaLOG) SUBCUT PRN (22:59)
[2023-09-04] VITALS (7 sets, daily range): BP systolic 104–150; PULSE 70–101; RESP 16–20; TEMP 97.4–98.9; O2SAT 94–99
[2023-09-04] MEDS: IPRATROPIUM/ALBUTEROL SULFATE 3 ML AMPUL.NEB (DUONEB) INH SCH ×5 (03:00→20:12)
[2023-09-04] MEDS: SEVELAMER CARBONATE 800 MG TABLET PO SCH ×3 (09:52→20:54)
[2023-09-04] MEDS: NIFEDIPINE 90 MG TABLET.SA (PROCARDIA XL 90 MG) PO SCH (09:52)
[2023-09-04] MEDS: METOPROLOL TARTRATE 50 MG TABLET PO SCH ×2 (09:53→20:54)
[2023-09-04] MEDS: SERTRALINE HCL 50 MG TABLET PO SCH ×2 (09:53→20:55)
[2023-09-04] MEDS: HYDROcodone/ACETAMIN 5-325 MG TAB (NORCO/ VICODIN) PO PRN (10:53)
[2023-09-04] MEDS: INSULIN LISPRO SLIDING SCALE 100 UNITS/ML, 3 ML VIAL (humaLOG) SUBCUT PRN ×2 (11:43→17:50)
[2023-09-04 17:16] LABS: BASOPHILS # (AUTO) 0.1 K/uL (0.0-0.2); BASOPHILS % (AUTO) 0.9 % (0.0-2.0); EOSINOPHILS # (AUTO) 0.1 K/uL (0.0-0.4); EOSINOPHILS % (AUTO) 1.3 % (0.0-4.0); HEMATOCRIT 29.3 % (36-54); HEMOGLOBIN 9.4 g/dL (14.0-18.0); LYMPHOCYTES # (AUTO) 0.8 K/uL (1.0-5.5); LYMPHOCYTES % (AUTO) 9.1 % (20.5-51.5); MEAN CORPUSCULAR HEMOGLOBIN 32 pg (27-31); MEAN CORPUSCULAR HGB CONC 32 % (32-36); MEAN CORPUSCULAR VOLUME 99 fL (79.0-98.0); MONOCYTES % (AUTO) 11.7 % (1.7-9.3); NEUTROPHILS # (AUTO) 6.8 K/uL (1.8-7.7); PLATELET COUNT (AUTO) 128 K/uL (130-430); RED BLOOD CELL COUNT(AUTO) 2.95 MIL/uL (4.2-6.2); RED CELL DISTRIBUTION WIDTH 16.2 % (9.0-15.0); WHITE BLOOD COUNT (AUTO) 8.8 K/uL (4.8-10.8)
[2023-09-04 17:27] LABS: ALANINE AMINOTRANSFERASE 9 U/L (12-78); ALBUMIN 3.2 g/dL (3.4-4.8); ANION GAP 12 (5-15); ASPARTATE AMINOTRANSFERASE 21 U/L (10-37); CALCIUM 7.9 mg/dL (8.4-11.0); CARBON DIOXIDE 29 mmol/L (23-29); CHLORIDE 99 mmol/L (98-107); GLUCOSE 113 mg/dL (74-106); POTASSIUM 4.3 mmol/L (3.5-5.1); SODIUM SERUM 140 mmol/L (136-145); TOTAL BILIRUBIN 0.5 mg/dL (0.0-1.0); TOTAL PROTEIN, SERUM 6.1 g/dL (6.4-8.3); UREA NITROGEN, BLOOD 55 mg/dL (8-21)
[2023-09-04 17:31] LABS: CREATININE 8.28 mg/dL (0.55-1.30)
[2023-09-04 17:46] LABS: INR 1.2 (0.80-1.20)
[2023-09-04] MEDS: QUEtiapine FUMARATE 25 MG TABLET PO SCH (20:55)
[2023-09-04] MEDS: HALOPERIDOL LACTATE 5 MG/ML VIAL IM PRN (22:04)
[2023-09-04] MEDS ORDERED: LORazepam 2 MG/ML VIAL IVP ONE (22:30)
[2023-09-04] MEDS ORDERED: LORazepam 2 MG/ML VIAL ONE (22:34)
[2023-09-05] VITALS (9 sets, daily range): BP systolic 95–149; PULSE 90–111; RESP 16–18; TEMP 97.3–99; O2SAT 92–100
[2023-09-05 06:48] LABS: BASOPHILS # (AUTO) 0.1 K/uL (0.0-0.2); BASOPHILS % (AUTO) 0.8 % (0.0-2.0); EOSINOPHILS # (AUTO) 0.1 K/uL (0.0-0.4); HEMATOCRIT 28.2 % (36-54); LYMPHOCYTES % (AUTO) 13.7 % (20.5-51.5); MEAN CORPUSCULAR HEMOGLOBIN 31 pg (27-31); MEAN CORPUSCULAR HGB CONC 32 % (32-36); MEAN CORPUSCULAR VOLUME 99 fL (79.0-98.0); MONOCYTES # (AUTO) 0.9 K/uL (0.0-1.0); MONOCYTES % (AUTO) 12.5 % (1.7-9.3); NEUTROPHILS # (AUTO) 5.3 K/uL (1.8-7.7); PLATELET COUNT (AUTO) 102 K/uL (130-430); RED BLOOD CELL COUNT(AUTO) 2.86 MIL/uL (4.2-6.2); RED CELL DISTRIBUTION WIDTH 16.2 % (9.0-15.0); WHITE BLOOD COUNT (AUTO) 7.4 K/uL (4.8-10.8)
[2023-09-05] MEDS: IPRATROPIUM/ALBUTEROL SULFATE 3 ML AMPUL.NEB (DUONEB) INH SCH ×7 (07:00→23:38)
[2023-09-05 07:50] LABS: ANION GAP 14 (5-15); CALCIUM 7.7 mg/dL (8.4-11.0); CARBON DIOXIDE 28 mmol/L (23-29); CHLORIDE 97 mmol/L (98-107); GLUCOSE 151 mg/dL (74-106); POTASSIUM 3.7 mmol/L (3.5-5.1); SODIUM SERUM 139 mmol/L (136-145); UREA NITROGEN, BLOOD 46 mg/dL (8-21)
[2023-09-05] MEDS: METOPROLOL TARTRATE 50 MG TABLET PO SCH ×3 (07:50→21:00)
[2023-09-05] MEDS: NIFEDIPINE 90 MG TABLET.SA (PROCARDIA XL 90 MG) PO SCH (08:48)
[2023-09-05] MEDS: SEVELAMER CARBONATE 800 MG TABLET PO SCH ×3 (08:49→21:00)
[2023-09-05] MEDS: SERTRALINE HCL 50 MG TABLET PO SCH ×2 (08:49→21:00)
[2023-09-05] MEDS ORDERED: BUPIVACAINE /PF 0.25% 30 ML VIAL INJ ONE (13:40)
[2023-09-05] MEDS ORDERED: PROPOFOL 200MG/ 20ML VIAL (DIPRIVAN) IV ONE (13:40)
[2023-09-05] MEDS ORDERED: WATER FOR IRRIGATION,STERILE 1,000 ML IRRIG.SOLN IR ONE (13:40)
[2023-09-05] MEDS ORDERED: NS IRRIG SOLN 1000 ML IR ONE (13:40)
[2023-09-05] MEDS ORDERED: ONDANSETRON HCL 4 MG/2 ML VIAL ONE (13:40)
[2023-09-05] MEDS ORDERED: SEVOFLURANE 15 MIN GAS INH ONE (13:40)
[2023-09-05] MEDS ORDERED: ONDANSETRON HCL 4 MG/2 ML VIAL IVP PRN (15:15)
[2023-09-05] MEDS ORDERED: KETOROLAC TROMETHAMINE 30 MG VIAL IVP PRN (15:15)
[2023-09-05] MEDS ORDERED: MORPHINE 2 MG/ML INJ. SYRINGE ONE (16:15)
[2023-09-05] MEDS: MORPHINE 4 MG INJ. 4 MG/ML VIAL IVP PRN ×2 (16:17→16:35)
[2023-09-05] MEDS ORDERED: MORPHINE 4 MG INJ. 4 MG/ML VIAL ONE (16:34)
[2023-09-05] MEDS: QUEtiapine FUMARATE 25 MG TABLET PO SCH (21:00)
[2023-09-05] MEDS: ceFAZolin SODIUM 2 GM in D5W 100 ML IV SCH (23:00)
[2023-09-06] VITALS (11 sets, daily range): BP systolic 96–139; PULSE 68–109; RESP 16–18; TEMP 97–98.3; O2SAT 95–100
[2023-09-06] MEDS: IPRATROPIUM/ALBUTEROL SULFATE 3 ML AMPUL.NEB (DUONEB) INH SCH ×6 (03:35→23:00)
[2023-09-06] MEDS: HYDROcodone/ACETAMIN 5-325 MG TAB (NORCO/ VICODIN) PO PRN (05:05)
[2023-09-06] MEDS: ceFAZolin SODIUM 2 GM in D5W 100 ML IV SCH ×2 (06:00→14:48)
[2023-09-06] MEDS: SEVELAMER CARBONATE 800 MG TABLET PO SCH ×3 (09:00→21:00)
[2023-09-06] MEDS ORDERED: ASPIRIN 81 MG TABLET(ECOTRIN) PO ONE (09:15)
[2023-09-06] MEDS: ENOXAPARIN SODIUM 30 MG/0.3 ML SYRINGE SUBCUT SCH (11:06)
[2023-09-06] MEDS: NIFEDIPINE 90 MG TABLET.SA (PROCARDIA XL 90 MG) PO SCH (11:07)
[2023-09-06] MEDS: SERTRALINE HCL 50 MG TABLET PO SCH ×2 (11:07→21:00)
[2023-09-06] MEDS: METOPROLOL TARTRATE 50 MG TABLET PO SCH ×2 (11:08→21:00)
[2023-09-06] MEDS ORDERED: NS 500 ML IV ONE (17:15)
[2023-09-06] MEDS ORDERED: ALBUMIN HUMAN 25% 200 ML IV ONE (17:30)
[2023-09-06] MEDS: QUEtiapine FUMARATE 25 MG TABLET PO SCH (21:00)
[2023-09-07] VITALS (12 sets, daily range): BP systolic 93–123; PULSE 60–98; RESP 9–18; TEMP 97.6–99.2; O2SAT 82–100
[2023-09-07] MEDS: IPRATROPIUM/ALBUTEROL SULFATE 3 ML AMPUL.NEB (DUONEB) INH SCH ×4 (03:00→15:00)
[2023-09-07] MEDS: METOPROLOL TARTRATE 50 MG TABLET PO SCH ×2 (08:16→11:55)
[2023-09-07] MEDS: ASPIRIN 81 MG TABLET(ECOTRIN) PO SCH ×2 (08:16→11:53)
[2023-09-07] MEDS: NIFEDIPINE 90 MG TABLET.SA (PROCARDIA XL 90 MG) PO SCH ×2 (08:17→11:54)
[2023-09-07] MEDS: SERTRALINE HCL 50 MG TABLET PO SCH ×2 (08:17→11:53)
[2023-09-07] MEDS: SEVELAMER CARBONATE 800 MG TABLET PO SCH ×3 (08:17→15:00)
[2023-09-07] MEDS: ENOXAPARIN SODIUM 30 MG/0.3 ML SYRINGE SUBCUT SCH ×2 (08:18→11:55)
[2023-09-07] MEDS: HYDROcodone/ACETAMIN 5-325 MG TAB (NORCO/ VICODIN) PO PRN (10:12)
[2023-09-07] MEDS: INSULIN LISPRO SLIDING SCALE 100 UNITS/ML, 3 ML VIAL (humaLOG) SUBCUT PRN (12:02)
[2023-09-07] MEDS ORDERED: NALOXONE HCL 0.4 MG/ML AMP (NARCAN) IVP ONE ×2 (13:45→16:45)
== END 2023-09-07 18:33 | DRG 480 ==
LOC: SED 17:28 → SIC 21:52 → STU 09-02 08:34 → SMU 09-06 21:17 → STU 09-06 21:39
PROVIDERS: ADMIT Family Medicine; ATTEND Family Medicine
PROC: 5A1D70Z Performance of Urinary Filtration, Intermittent, Less than 6 Hours Per Day (ICD-10-PCS; 2023-08-31)
PROC: 5A1D70Z Performance of Urinary Filtration, Intermittent, Less than 6 Hours Per Day (ICD-10-PCS; 2023-09-01)
PROC: 5A1D70Z Performance of Urinary Filtration, Intermittent, Less than 6 Hours Per Day (ICD-10-PCS; 2023-09-03)
PROC: 5A1D70Z Performance of Urinary Filtration, Intermittent, Less than 6 Hours Per Day (ICD-10-PCS; 2023-09-05)
PROC: 0QS606Z Reposition Right Upper Femur with Intramedullary Internal Fixation Device, Open Approach (ICD-10-PCS; principal; 2023-09-05 13:44)
PROC: 5A1D70Z Performance of Urinary Filtration, Intermittent, Less than 6 Hours Per Day (ICD-10-PCS; 2023-09-06)
DX: S72.141A Displaced intertrochanteric fracture of right femur, initial encounter for closed fracture (principal); G93.41 Metabolic encephalopathy; J69.0 Pneumonitis due to inhalation of food and vomit; N18.6 End stage renal disease; J96.01 Acute respiratory failure with hypoxia; I12.0 Hypertensive chronic kidney disease with stage 5 chronic kidney disease or end stage renal disease; E44.0 Moderate protein-calorie malnutrition; J44.0 Chronic obstructive pulmonary disease with (acute) lower respiratory infection; N17.9 Acute kidney failure, unspecified; M16.11 Unilateral primary osteoarthritis, right hip; E87.5 Hyperkalemia; E11.65 Type 2 diabetes mellitus with hyperglycemia; D69.6 Thrombocytopenia, unspecified; E83.51 Hypocalcemia; E83.39 Other disorders of phosphorus metabolism; E78.5 Hyperlipidemia, unspecified; E88.09 Other disorders of plasma-protein metabolism, not elsewhere classified; E11.40 Type 2 diabetes mellitus with diabetic neuropathy, unspecified; W18.39XA Other fall on same level, initial encounter; M85.80 Other specified disorders of bone density and structure, unspecified site; F03.90 Unspecified dementia, unspecified severity, without behavioral disturbance, psychotic disturbance, mood disturbance, and anxiety; D50.9 Iron deficiency anemia, unspecified; E11.22 Type 2 diabetes mellitus with diabetic chronic kidney disease; E87.70 Fluid overload, unspecified; D63.1 Anemia in chronic kidney disease; Z99.2 Dependence on renal dialysis; Z91.158 Patient's noncompliance with renal dialysis for other reason; Z79.4 Long term (current) use of insulin; Z79.899 Other long term (current) drug therapy; Z79.2 Long term (current) use of antibiotics; Z68.33 Body mass index [BMI] 33.0-33.9, adult; Y93.89 Activity, other specified; Y92.89 Other specified places as the place of occurrence of the external cause; Y99.8 Other external cause status
CPT/HCPCS: 36415; 36600; 70450-TC; 71045; 73502; 76000; 76376; 80048; 80053; 80076; 82803; 82962; 83037; 83605; 83735; 83880; 84100; 84484; 85025; 85610-TC; 85730-TC; 86886; 86900; 86901; 87040; 87081; 90935; 90937; 93005; 93306; 94640; 94760; 96365; 97163-GP; 99291; G0378; J0696; J1630; J1650; J1815; J2060; J2270; J2310; J2405; J2704; J3490; J7060

== ENCOUNTER 2023-10-26 08:59 | Inpatient (IN) | payer BC, OTHER ==
[2023-10-25] MEDS: QUEtiapine FUMARATE 25 MG TABLET PO SCH (23:00)
[~2023-10-26] VITALS: Ht 170.2 cm; Wt 87.3 kg
[~2023-10-26 08:59] MED LIST changes: -ACET-2634 PO; -BLOO-1360 XX; +CALC-1263 PO; +CALC600T2 PO; -CALC667T6 PO; +CALC668T PO; -DOXY100C5 PO; -GUAI600T45 PO; -HYDR-3917 PO; +HYDR-4272 PO; +INSU100V SUBCUT; -INSU100V3 SUBCUT; +LORA-258 PO; +LOVI30 SQ; +MEGE400O5 PO; +QUET50TA24 PO; +REN800 PO; -SER25 PO; -SERT-436 PO; +SERT25TA PO; -SEVE800T8 PO
[2023-10-26 09:10] VITALS: BP_SYST 106; PULSE 101; RESP 19; TEMP 98; O2SAT 99
[2023-10-26 09:37] LABS: BASOPHILS # (AUTO) 0.1 K/uL (0.0-0.2); BASOPHILS % (AUTO) 0.9 % (0.0-2.0); EOSINOPHILS # (AUTO) 0.1 K/uL (0.0-0.4); EOSINOPHILS % (AUTO) 1.9 % (0.0-4.0); HEMATOCRIT 36.7 % (36-54); HEMOGLOBIN 11.7 g/dL (14.0-18.0); LYMPHOCYTES # (AUTO) 1.2 K/uL (1.0-5.5); LYMPHOCYTES % (AUTO) 14.7 % (20.5-51.5); MEAN CORPUSCULAR HEMOGLOBIN 30 pg (27-31); MEAN CORPUSCULAR HGB CONC 32 % (32-36); MEAN CORPUSCULAR VOLUME 93 fL (79.0-98.0); MONOCYTES # (AUTO) 0.9 K/uL (0.0-1.0); MONOCYTES % (AUTO) 11.4 % (1.7-9.3); NEUTROPHILS # (AUTO) 5.6 K/uL (1.8-7.7); NEUTROPHILS % (AUTO) 71.1 % (40.0-70.0); PLATELET COUNT (AUTO) 176 K/uL (130-430); RED BLOOD CELL COUNT(AUTO) 3.93 MIL/uL (4.2-6.2); RED CELL DISTRIBUTION WIDTH 16.9 % (9.0-15.0); WHITE BLOOD COUNT (AUTO) 7.8 K/uL (4.8-10.8)
[2023-10-26 09:43] LABS: ANION GAP 11 (5-15); CALCIUM 8.7 mg/dL (8.4-11.0); CARBON DIOXIDE 32 mmol/L (23-29); CHLORIDE 99 mmol/L (98-107); CREATININE 5.09 mg/dL (0.55-1.30); GLUCOSE 150 mg/dL (74-106); SODIUM SERUM 142 mmol/L (136-145); UREA NITROGEN, BLOOD 37 mg/dL (8-21)
[2023-10-26 09:50] LABS: ALANINE AMINOTRANSFERASE 4 U/L (12-78); ALBUMIN 3.3 g/dL (3.4-4.8); ASPARTATE AMINOTRANSFERASE 12 U/L (10-37); BILIRUBIN,DIRECT 0.2 mg/dL (0.0-0.3); TOTAL BILIRUBIN 0.6 mg/dL (0.0-1.0); TOTAL PROTEIN, SERUM 7.3 g/dL (6.4-8.3)
[2023-10-26 14:06] LABS: INR 1.1 (0.80-1.20)
[2023-10-26] MEDS ORDERED: MORPHINE 2 MG/ML INJ. SYRINGE IVP PRN (16:45)
[2023-10-26] MEDS ORDERED: HYDROcodone/ACETAMIN 5-325 MG TAB (NORCO/ VICODIN) PO PRN (16:45)
[2023-10-26] MEDS ORDERED: NALOXONE HCL 0.4 MG/ML AMP (NARCAN) IVP PRN (16:45)
[2023-10-26] MEDS ORDERED: ONDANSETRON HCL 4 MG/2 ML VIAL IVP PRN (16:45)
[2023-10-26] MEDS ORDERED: SEVELAMER HCL Non-Formulary 800 MG TABLET PO SCH (17:00)
[2023-10-26] MEDS: NACL 0.9% 1,000 ML IV ONE (20:05)
[2023-10-26] MEDS: NIFEDIPINE 90 MG TABLET.SA (PROCARDIA XL 90 MG) PO ONE (20:12)
[2023-10-26] MEDS: METOPROLOL TARTRATE 50 MG TABLET PO ONE (20:12)
[2023-10-26] MEDS: SERTRALINE HCL 50 MG TABLET PO ONE (20:12)
[2023-10-26] MEDS: ENOXAPARIN SODIUM 30 MG/0.3 ML SYRINGE SQ ONE (20:13)
[2023-10-26] MEDS: SEVELAMER CARBONATE 800 MG TABLET PO SCH (20:15)
[2023-10-26] MEDS: MORPHINE 2 MG/ML INJ. SYRINGE IVP ONE (20:56)
[2023-10-26] MEDS: ONDANSETRON HCL 4 MG/2 ML VIAL IVP ONE (20:57)
[2023-10-26] MEDS: METOPROLOL TARTRATE 50 MG TABLET PO SCH (20:58)
[2023-10-26] MEDS: SERTRALINE HCL 50 MG TABLET PO SCH (20:58)
[2023-10-27 07:45] LABS: BASOPHILS # (AUTO) 0.1 K/uL (0.0-0.2); BASOPHILS % (AUTO) 1.8 % (0.0-2.0); EOSINOPHILS # (AUTO) 0.2 K/uL (0.0-0.4); EOSINOPHILS % (AUTO) 3.2 % (0.0-4.0); HEMATOCRIT 33.7 % (36-54); HEMOGLOBIN 10.9 g/dL (14.0-18.0); LYMPHOCYTES # (AUTO) 1.3 K/uL (1.0-5.5); LYMPHOCYTES % (AUTO) 19.1 % (20.5-51.5); MEAN CORPUSCULAR HEMOGLOBIN 30 pg (27-31); MEAN CORPUSCULAR HGB CONC 32 % (32-36); MEAN CORPUSCULAR VOLUME 93 fL (79.0-98.0); MONOCYTES # (AUTO) 0.6 K/uL (0.0-1.0); NEUTROPHILS # (AUTO) 4.5 K/uL (1.8-7.7); NEUTROPHILS % (AUTO) 66.9 % (40.0-70.0); PLATELET COUNT (AUTO) 185 K/uL (130-430); RED BLOOD CELL COUNT(AUTO) 3.63 MIL/uL (4.2-6.2); RED CELL DISTRIBUTION WIDTH 16.8 % (9.0-15.0); WHITE BLOOD COUNT (AUTO) 6.7 K/uL (4.8-10.8)
[2023-10-27 07:59] LABS: ALANINE AMINOTRANSFERASE 7 U/L (12-78); ANION GAP 10 (5-15); ASPARTATE AMINOTRANSFERASE 12 U/L (10-37); CALCIUM 8.3 mg/dL (8.4-11.0); CARBON DIOXIDE 30 mmol/L (23-29); CHLORIDE 99 mmol/L (98-107); CREATININE 6.05 mg/dL (0.55-1.30); GLUCOSE 161 mg/dL (74-106); PHOSPHORUS 4.4 mg/dL (2.7-4.5); POTASSIUM 4.5 mmol/L (3.5-5.1); SODIUM SERUM 139 mmol/L (136-145); TOTAL BILIRUBIN 0.5 mg/dL (0.0-1.0); TOTAL PROTEIN, SERUM 6.7 g/dL (6.4-8.3); UREA NITROGEN, BLOOD 47 mg/dL (8-21)
[2023-10-27 08:30] VITALS: BP_SYST 148; PULSE 93; RESP 20; TEMP 98.3; O2SAT 97
[2023-10-27] MEDS: NIFEDIPINE 90 MG TABLET.SA (PROCARDIA XL 90 MG) PO SCH (08:47)
[2023-10-27] MEDS: ENOXAPARIN SODIUM 30 MG/0.3 ML SYRINGE SQ SCH (08:49)
[2023-10-27] MEDS ORDERED: LORazepam 2 MG/ML VIAL IVP PRN ×2 (11:45)
[2023-10-27] MEDS: HALOPERIDOL LACTATE 5 MG/ML VIAL IM PRN (12:02)
[2023-10-27 12:42] VITALS: BP_SYST 152; PULSE 95; RESP 19; TEMP 98; O2SAT 98
[2023-10-27 16:11] VITALS: BP_SYST 145; PULSE 94; RESP 20; TEMP 98.1; O2SAT 97
[2023-10-27 20:00] VITALS: BP_SYST 164; PULSE 93; RESP 20; TEMP 98.8; O2SAT 99
[2023-10-27] MEDS: HYDROcodone/ACETAMIN 10-325 MG TAB PO PRN (21:20)
[2023-10-28] VITALS (7 sets, daily range): BP systolic 128–147; PULSE 86–106; RESP 18–20; TEMP 97.7–98.7; O2SAT 97–99
[2023-10-28] MEDS: HALOPERIDOL LACTATE 5 MG/ML VIAL IM PRN (14:15)
[2023-10-29] VITALS (7 sets, daily range): BP systolic 133–139; PULSE 84–90; RESP 16–18; TEMP 97.3–98.2; O2SAT 95–98
[2023-10-29 07:53] LABS: BASOPHILS # (AUTO) 0.1 K/uL (0.0-0.2); BASOPHILS % (AUTO) 0.9 % (0.0-2.0); EOSINOPHILS # (AUTO) 0.1 K/uL (0.0-0.4); HEMOGLOBIN 10.8 g/dL (14.0-18.0); LYMPHOCYTES % (AUTO) 10.2 % (20.5-51.5); MEAN CORPUSCULAR HEMOGLOBIN 30 pg (27-31); MEAN CORPUSCULAR HGB CONC 33 % (32-36); MEAN CORPUSCULAR VOLUME 92 fL (79.0-98.0); MONOCYTES # (AUTO) 1.2 K/uL (0.0-1.0); MONOCYTES % (AUTO) 11.7 % (1.7-9.3); NEUTROPHILS # (AUTO) 7.6 K/uL (1.8-7.7); NEUTROPHILS % (AUTO) 76.2 % (40.0-70.0); PLATELET COUNT (AUTO) 160 K/uL (130-430); RED BLOOD CELL COUNT(AUTO) 3.59 MIL/uL (4.2-6.2); RED CELL DISTRIBUTION WIDTH 16.8 % (9.0-15.0); WHITE BLOOD COUNT (AUTO) 9.9 K/uL (4.8-10.8)
[2023-10-29 08:34] LABS: ALANINE AMINOTRANSFERASE 10 U/L (12-78); ALBUMIN 3.1 g/dL (3.4-4.8); ANION GAP 13 (5-15); ASPARTATE AMINOTRANSFERASE 15 U/L (10-37); CALCIUM 8.5 mg/dL (8.4-11.0); CARBON DIOXIDE 28 mmol/L (23-29); CHLORIDE 96 mmol/L (98-107); CREATININE 6.81 mg/dL (0.55-1.30); GLUCOSE 130 mg/dL (74-106); POTASSIUM 4.7 mmol/L (3.5-5.1); SODIUM SERUM 137 mmol/L (136-145); TOTAL BILIRUBIN 0.7 mg/dL (0.0-1.0); TOTAL PROTEIN, SERUM 6.5 g/dL (6.4-8.3); UREA NITROGEN, BLOOD 47 mg/dL (8-21)
[2023-10-30] VITALS: BP_SYST 128; PULSE 82; RESP 16; TEMP 97.8; O2SAT 96
[2023-10-30 08:30] VITALS: O2SAT 96
[2023-10-30 08:44] VITALS: BP_SYST 118; PULSE 83; RESP 16; TEMP 98.5; O2SAT 96
[2023-10-30 11:57] VITALS: BP_SYST 121; PULSE 90; RESP 16; TEMP 97.9; O2SAT 94
[2023-10-30 17:30] VITALS: BP_SYST 148; PULSE 89; RESP 18; TEMP 98; O2SAT 96
[2023-10-30 20:00] VITALS: BP_SYST 167; PULSE 107; RESP 18; TEMP 99.7; O2SAT 97
[2023-10-31] VITALS (7 sets, daily range): BP systolic 129–148; PULSE 70–87; RESP 16–18; TEMP 97.6–98.8; O2SAT 96–100
[2023-11-01 01:23] VITALS: BP_SYST 171; PULSE 79; RESP 17; TEMP 98.4; O2SAT 98
[2023-11-01 06:06] LABS: BASOPHILS % (AUTO) 0.2 % (0.0-2.0); EOSINOPHILS # (AUTO) 0.2 K/uL (0.0-0.4); EOSINOPHILS % (AUTO) 2.2 % (0.0-4.0); HEMATOCRIT 31.2 % (36-54); LYMPHOCYTES # (AUTO) 1.3 K/uL (1.0-5.5); LYMPHOCYTES % (AUTO) 16.7 % (20.5-51.5); MEAN CORPUSCULAR HEMOGLOBIN 29 pg (27-31); MEAN CORPUSCULAR HGB CONC 32 % (32-36); MEAN CORPUSCULAR VOLUME 92 fL (79.0-98.0); MONOCYTES # (AUTO) 1.1 K/uL (0.0-1.0); MONOCYTES % (AUTO) 13.8 % (1.7-9.3); NEUTROPHILS # (AUTO) 5.1 K/uL (1.8-7.7); NEUTROPHILS % (AUTO) 67.1 % (40.0-70.0); PLATELET COUNT (AUTO) 188 K/uL (130-430); RED CELL DISTRIBUTION WIDTH 16.7 % (9.0-15.0); WHITE BLOOD COUNT (AUTO) 7.6 K/uL (4.8-10.8)
[2023-11-01 07:10] LABS: ALANINE AMINOTRANSFERASE 10 U/L (12-78); ALBUMIN 2.8 g/dL (3.4-4.8); ANION GAP 13 (5-15); ASPARTATE AMINOTRANSFERASE 13 U/L (10-37); CALCIUM 7.9 mg/dL (8.4-11.0); CARBON DIOXIDE 26 mmol/L (23-29); CHLORIDE 96 mmol/L (98-107); GLUCOSE 127 mg/dL (74-106); POTASSIUM 5.3 mmol/L (3.5-5.1); SODIUM SERUM 135 mmol/L (136-145); TOTAL BILIRUBIN 0.4 mg/dL (0.0-1.0); TOTAL PROTEIN, SERUM 6.7 g/dL (6.4-8.3); UREA NITROGEN, BLOOD 72 mg/dL (8-21)
[2023-11-01 07:45] VITALS: O2SAT 100
[2023-11-01 07:57] VITALS: BP_SYST 148; PULSE 69; RESP 18; TEMP 97.9; O2SAT 100
[2023-11-01 08:23] LABS: CREATININE 8.28 mg/dL (0.55-1.30)
[2023-11-01 11:20] VITALS: BP_SYST 137; PULSE 84; RESP 16; TEMP 98; O2SAT 97
[2023-11-01 17:13] VITALS: BP_SYST 139; PULSE 84; RESP 16; TEMP 98; O2SAT 97
[2023-11-01 20:00] VITALS: O2SAT 100
[2023-11-02 01:54] VITALS: BP_SYST 140; PULSE 85; RESP 17; TEMP 97.8; O2SAT 96
[2023-11-02 08:00] VITALS: BP_SYST 133; PULSE 91; RESP 16; TEMP 98.5; O2SAT 98
[2023-11-02 15:56] VITALS: BP_SYST 124; PULSE 89; RESP 16; TEMP 98.8; O2SAT 98
[2023-11-02 19:54] LABS: BASOPHILS # (AUTO) 0.1 K/uL (0.0-0.2); BASOPHILS % (AUTO) 1.4 % (0.0-2.0); EOSINOPHILS # (AUTO) 0.2 K/uL (0.0-0.4); EOSINOPHILS % (AUTO) 2.8 % (0.0-4.0); HEMATOCRIT 32.5 % (36-54); HEMOGLOBIN 10.5 g/dL (14.0-18.0); LYMPHOCYTES # (AUTO) 1.1 K/uL (1.0-5.5); LYMPHOCYTES % (AUTO) 14.8 % (20.5-51.5); MEAN CORPUSCULAR HEMOGLOBIN 29 pg (27-31); MEAN CORPUSCULAR HGB CONC 32 % (32-36); MEAN CORPUSCULAR VOLUME 91 fL (79.0-98.0); MONOCYTES # (AUTO) 0.9 K/uL (0.0-1.0); MONOCYTES % (AUTO) 12.3 % (1.7-9.3); NEUTROPHILS # (AUTO) 5.1 K/uL (1.8-7.7); NEUTROPHILS % (AUTO) 68.7 % (40.0-70.0); PLATELET COUNT (AUTO) 241 K/uL (130-430); RED BLOOD CELL COUNT(AUTO) 3.58 MIL/uL (4.2-6.2); RED CELL DISTRIBUTION WIDTH 16.8 % (9.0-15.0); WHITE BLOOD COUNT (AUTO) 7.4 K/uL (4.8-10.8)
[2023-11-02 20:13] LABS: ALANINE AMINOTRANSFERASE 15 U/L (12-78); ALBUMIN 2.9 g/dL (3.4-4.8); ANION GAP 12 (5-15); ASPARTATE AMINOTRANSFERASE 24 U/L (10-37); CALCIUM 7.9 mg/dL (8.4-11.0); CARBON DIOXIDE 27 mmol/L (23-29); CHLORIDE 99 mmol/L (98-107); GLUCOSE 199 mg/dL (74-106); POTASSIUM 5.2 mmol/L (3.5-5.1); SODIUM SERUM 138 mmol/L (136-145); TOTAL BILIRUBIN 0.4 mg/dL (0.0-1.0); TOTAL PROTEIN, SERUM 6.9 g/dL (6.4-8.3); UREA NITROGEN, BLOOD 68 mg/dL (8-21)
[2023-11-02 20:24] LABS: CREATININE 7.79 mg/dL (0.55-1.30)
[2023-11-02 20:30] VITALS: O2SAT 97
[2023-11-02 21:00] VITALS: BP_SYST 150; PULSE 88; RESP 20; TEMP 99.1; O2SAT 99
[2023-11-03 00:15] VITALS: BP_SYST 147; PULSE 89; RESP 20; TEMP 98.9
[2023-11-03 05:51] LABS: BASOPHILS # (AUTO) 0.1 K/uL (0.0-0.2); BASOPHILS % (AUTO) 1.1 % (0.0-2.0); EOSINOPHILS # (AUTO) 0.2 K/uL (0.0-0.4); EOSINOPHILS % (AUTO) 2.8 % (0.0-4.0); HEMATOCRIT 31.7 % (36-54); HEMOGLOBIN 10.3 g/dL (14.0-18.0); LYMPHOCYTES # (AUTO) 1.2 K/uL (1.0-5.5); LYMPHOCYTES % (AUTO) 17.3 % (20.5-51.5); MEAN CORPUSCULAR HEMOGLOBIN 29 pg (27-31); MEAN CORPUSCULAR HGB CONC 33 % (32-36); MEAN CORPUSCULAR VOLUME 90 fL (79.0-98.0); MONOCYTES # (AUTO) 0.9 K/uL (0.0-1.0); MONOCYTES % (AUTO) 12.4 % (1.7-9.3); NEUTROPHILS # (AUTO) 4.7 K/uL (1.8-7.7); NEUTROPHILS % (AUTO) 66.4 % (40.0-70.0); PLATELET COUNT (AUTO) 237 K/uL (130-430); RED BLOOD CELL COUNT(AUTO) 3.53 MIL/uL (4.2-6.2); RED CELL DISTRIBUTION WIDTH 16.9 % (9.0-15.0); WHITE BLOOD COUNT (AUTO) 7.1 K/uL (4.8-10.8)
[2023-11-03 06:30] LABS: ALANINE AMINOTRANSFERASE 17 U/L (12-78); ANION GAP 16 (5-15); ASPARTATE AMINOTRANSFERASE 24 U/L (10-37); CARBON DIOXIDE 24 mmol/L (23-29); CHLORIDE 99 mmol/L (98-107); GLUCOSE 144 mg/dL (74-106); POTASSIUM 4.8 mmol/L (3.5-5.1); SODIUM SERUM 139 mmol/L (136-145); TOTAL BILIRUBIN 0.5 mg/dL (0.0-1.0); TOTAL PROTEIN, SERUM 6.9 g/dL (6.4-8.3); UREA NITROGEN, BLOOD 71 mg/dL (8-21)
[2023-11-03 06:52] LABS: CREATININE 8.17 mg/dL (0.55-1.30)
[2023-11-03 08:00] VITALS: BP_SYST 132; PULSE 91; RESP 16; TEMP 97.3; O2SAT 96
[2023-11-03 11:16] VITALS: BP_SYST 141; PULSE 89; RESP 18; TEMP 97.9; O2SAT 96
[2023-11-03 16:22] VITALS: BP_SYST 140; PULSE 90; RESP 18; TEMP 97.8; O2SAT 96
[2023-11-03 20:12] VITALS: BP_SYST 148; PULSE 92; RESP 18; TEMP 98; O2SAT 99
[2023-11-04 00:10] VITALS: BP_SYST 158; PULSE 62; RESP 18; TEMP 97; O2SAT 99
[2023-11-04 06:26] LABS: BASOPHILS # (AUTO) 0.1 K/uL (0.0-0.2); BASOPHILS % (AUTO) 1.2 % (0.0-2.0); EOSINOPHILS # (AUTO) 0.2 K/uL (0.0-0.4); EOSINOPHILS % (AUTO) 3.6 % (0.0-4.0); HEMATOCRIT 29.8 % (36-54); HEMOGLOBIN 9.8 g/dL (14.0-18.0); LYMPHOCYTES # (AUTO) 1.1 K/uL (1.0-5.5); LYMPHOCYTES % (AUTO) 16.4 % (20.5-51.5); MEAN CORPUSCULAR HEMOGLOBIN 30 pg (27-31); MEAN CORPUSCULAR HGB CONC 33 % (32-36); MEAN CORPUSCULAR VOLUME 90 fL (79.0-98.0); MONOCYTES # (AUTO) 0.9 K/uL (0.0-1.0); MONOCYTES % (AUTO) 12.9 % (1.7-9.3); NEUTROPHILS # (AUTO) 4.5 K/uL (1.8-7.7); NEUTROPHILS % (AUTO) 65.9 % (40.0-70.0); PLATELET COUNT (AUTO) 209 K/uL (130-430); RED BLOOD CELL COUNT(AUTO) 3.32 MIL/uL (4.2-6.2); RED CELL DISTRIBUTION WIDTH 16.7 % (9.0-15.0); WHITE BLOOD COUNT (AUTO) 6.8 K/uL (4.8-10.8)
[2023-11-04 07:03] LABS: ALANINE AMINOTRANSFERASE 15 U/L (12-78); ALBUMIN 2.7 g/dL (3.4-4.8); ANION GAP 12 (5-15); ASPARTATE AMINOTRANSFERASE 22 U/L (10-37); CARBON DIOXIDE 25 mmol/L (23-29); CHLORIDE 102 mmol/L (98-107); CREATININE 7.07 mg/dL (0.55-1.30); GLUCOSE 109 mg/dL (74-106); POTASSIUM 4.8 mmol/L (3.5-5.1); SODIUM SERUM 139 mmol/L (136-145); TOTAL BILIRUBIN 0.4 mg/dL (0.0-1.0); TOTAL PROTEIN, SERUM 6.2 g/dL (6.4-8.3); UREA NITROGEN, BLOOD 54 mg/dL (8-21)
[2023-11-04 07:55] VITALS: BP_SYST 149; PULSE 70; RESP 16; TEMP 97.4; O2SAT 98
[2023-11-04 08:36] VITALS: O2SAT 98
[2023-11-04 12:35] VITALS: BP_SYST 146; PULSE 70; RESP 16; TEMP 97.1; O2SAT 99
[2023-11-04 16:30] VITALS: BP_SYST 140; PULSE 74; RESP 17; TEMP 97.6; O2SAT 98
[2023-11-04 20:00] VITALS: BP_SYST 137; PULSE 86; RESP 18; TEMP 98.1; O2SAT 97
[2023-11-05] VITALS (7 sets, daily range): BP systolic 133–158; PULSE 68–86; RESP 16–18; TEMP 97.8–99.1; O2SAT 96–99
[2023-11-05 06:35] LABS: BASOPHILS # (AUTO) 0.1 K/uL (0.0-0.2); EOSINOPHILS # (AUTO) 0.2 K/uL (0.0-0.4); EOSINOPHILS % (AUTO) 2.6 % (0.0-4.0); HEMATOCRIT 30.3 % (36-54); HEMOGLOBIN 9.8 g/dL (14.0-18.0); LYMPHOCYTES # (AUTO) 1.4 K/uL (1.0-5.5); LYMPHOCYTES % (AUTO) 16.8 % (20.5-51.5); MEAN CORPUSCULAR HEMOGLOBIN 29 pg (27-31); MEAN CORPUSCULAR HGB CONC 33 % (32-36); MEAN CORPUSCULAR VOLUME 90 fL (79.0-98.0); MONOCYTES # (AUTO) 0.9 K/uL (0.0-1.0); MONOCYTES % (AUTO) 10.8 % (1.7-9.3); NEUTROPHILS # (AUTO) 5.7 K/uL (1.8-7.7); NEUTROPHILS % (AUTO) 68.8 % (40.0-70.0); PLATELET COUNT (AUTO) 235 K/uL (130-430); RED BLOOD CELL COUNT(AUTO) 3.36 MIL/uL (4.2-6.2); RED CELL DISTRIBUTION WIDTH 17.3 % (9.0-15.0); WHITE BLOOD COUNT (AUTO) 8.3 K/uL (4.8-10.8)
[2023-11-05 06:58] LABS: ALANINE AMINOTRANSFERASE 18 U/L (12-78); ANION GAP 13 (5-15); ASPARTATE AMINOTRANSFERASE 24 U/L (10-37); CARBON DIOXIDE 25 mmol/L (23-29); CHLORIDE 100 mmol/L (98-107); GLUCOSE 126 mg/dL (74-106); POTASSIUM 5.3 mmol/L (3.5-5.1); SODIUM SERUM 138 mmol/L (136-145); TOTAL BILIRUBIN 0.4 mg/dL (0.0-1.0); TOTAL PROTEIN, SERUM 6.7 g/dL (6.4-8.3); UREA NITROGEN, BLOOD 68 mg/dL (8-21)
[2023-11-05 07:03] LABS: CREATININE 8.37 mg/dL (0.55-1.30)
[2023-11-05] MEDS: ACETAMINOPHEN 325 MG TABLET PO PRN (21:10)
[2023-11-06] VITALS (7 sets, daily range): BP systolic 95–164; PULSE 64–85; RESP 16–20; TEMP 97.6–98.9; O2SAT 94–99
[2023-11-06 05:24] LABS: BASOPHILS # (AUTO) 0.1 K/uL (0.0-0.2); BASOPHILS % (AUTO) 0.7 % (0.0-2.0); EOSINOPHILS # (AUTO) 0.1 K/uL (0.0-0.4); EOSINOPHILS % (AUTO) 1.1 % (0.0-4.0); HEMATOCRIT 32.1 % (36-54); HEMOGLOBIN 10.3 g/dL (14.0-18.0); LYMPHOCYTES # (AUTO) 1.5 K/uL (1.0-5.5); LYMPHOCYTES % (AUTO) 12.7 % (20.5-51.5); MEAN CORPUSCULAR HEMOGLOBIN 29 pg (27-31); MEAN CORPUSCULAR HGB CONC 32 % (32-36); MEAN CORPUSCULAR VOLUME 90 fL (79.0-98.0); MONOCYTES # (AUTO) 1.1 K/uL (0.0-1.0); MONOCYTES % (AUTO) 9.2 % (1.7-9.3); NEUTROPHILS # (AUTO) 9.1 K/uL (1.8-7.7); NEUTROPHILS % (AUTO) 76.3 % (40.0-70.0); PLATELET COUNT (AUTO) 265 K/uL (130-430); RED BLOOD CELL COUNT(AUTO) 3.57 MIL/uL (4.2-6.2)
[2023-11-06 05:55] LABS: ALANINE AMINOTRANSFERASE 16 U/L (12-78); ANION GAP 16 (5-15); ASPARTATE AMINOTRANSFERASE 18 U/L (10-37); CARBON DIOXIDE 24 mmol/L (23-29); CHLORIDE 97 mmol/L (98-107); GLUCOSE 141 mg/dL (74-106); SODIUM SERUM 137 mmol/L (136-145); TOTAL BILIRUBIN 0.5 mg/dL (0.0-1.0); TOTAL PROTEIN, SERUM 6.8 g/dL (6.4-8.3); UREA NITROGEN, BLOOD 76 mg/dL (8-21)
[2023-11-06 06:28] LABS: POTASSIUM 5.9 mmol/L (3.5-5.1)
[2023-11-06 06:29] LABS: CREATININE 9.35 mg/dL (0.55-1.30)
[2023-11-06] MEDS: SODIUM POLYSTYRENE SULFONATE 15 GM/60 ML UDBTL PO ONE (11:36)
[2023-11-07 06:09] LABS: BASOPHILS # (AUTO) 0.1 K/uL (0.0-0.2); BASOPHILS % (AUTO) 0.6 % (0.0-2.0); EOSINOPHILS # (AUTO) 0.1 K/uL (0.0-0.4); EOSINOPHILS % (AUTO) 0.7 % (0.0-4.0); HEMATOCRIT 32.8 % (36-54); HEMOGLOBIN 10.3 g/dL (14.0-18.0); LYMPHOCYTES # (AUTO) 1.3 K/uL (1.0-5.5); LYMPHOCYTES % (AUTO) 9.8 % (20.5-51.5); MEAN CORPUSCULAR HEMOGLOBIN 29 pg (27-31); MEAN CORPUSCULAR HGB CONC 32 % (32-36); MEAN CORPUSCULAR VOLUME 91 fL (79.0-98.0); MONOCYTES # (AUTO) 1.2 K/uL (0.0-1.0); MONOCYTES % (AUTO) 9.1 % (1.7-9.3); NEUTROPHILS # (AUTO) 10.3 K/uL (1.8-7.7); NEUTROPHILS % (AUTO) 79.8 % (40.0-70.0); PLATELET COUNT (AUTO) 260 K/uL (130-430); RED BLOOD CELL COUNT(AUTO) 3.62 MIL/uL (4.2-6.2); RED CELL DISTRIBUTION WIDTH 17.1 % (9.0-15.0); WHITE BLOOD COUNT (AUTO) 12.9 K/uL (4.8-10.8)
[2023-11-07 06:28] LABS: ANION GAP 14 (5-15); CALCIUM 8.3 mg/dL (8.4-11.0); CARBON DIOXIDE 26 mmol/L (23-29); CHLORIDE 100 mmol/L (98-107); GLUCOSE 130 mg/dL (74-106); PHOSPHORUS 5.9 mg/dL (2.7-4.5); POTASSIUM 5.2 mmol/L (3.5-5.1); SODIUM SERUM 140 mmol/L (136-145); UREA NITROGEN, BLOOD 64 mg/dL (8-21)
[2023-11-07 07:16] LABS: CREATININE 8.41 mg/dL (0.55-1.30)
[2023-11-07 08:00] VITALS: BP_SYST 114; PULSE 59; RESP 18; TEMP 98.6; O2SAT 100
[2023-11-07 10:58] VITALS: O2SAT 99
[2023-11-07 16:00] VITALS: BP_SYST 128; PULSE 82; RESP 18; TEMP 98.2; O2SAT 99
[2023-11-07] MEDS: ACETAMINOPHEN 325 MG TABLET PO PRN (18:32)
[2023-11-07 20:00] VITALS: BP_SYST 152; PULSE 65; RESP 18; TEMP 98.4; O2SAT 100
[2023-11-08 01:14] VITALS: BP_SYST 142; PULSE 78; RESP 17; TEMP 98.4; O2SAT 98
[2023-11-08 08:00] VITALS: PULSE 99; RESP 18; TEMP 98.6; O2SAT 99
[2023-11-08 08:45] VITALS: O2SAT 96
[2023-11-08 16:00] VITALS: BP_SYST 159; PULSE 99; RESP 18; TEMP 98.6
[2023-11-08 19:00] VITALS: BP_SYST 152; PULSE 96; RESP 16; TEMP 98.4; O2SAT 96
[2023-11-08 20:00] VITALS: BP_SYST 152; PULSE 96; RESP 16; TEMP 97.6; TEMP 98.4; O2SAT 93; O2SAT 96
[2023-11-09] VITALS: BP_SYST 130; BP_SYST 150; PULSE 72; PULSE 94; RESP 16; TEMP 97.2; TEMP 98.2; O2SAT 96
[2023-11-09 01:51] VITALS: BP_SYST 154; PULSE 81; RESP 17; TEMP 97.8; O2SAT 99
[2023-11-09 11:30] VITALS: BP_SYST 141; PULSE 79; RESP 17; TEMP 98.4; O2SAT 99
[2023-11-09 13:00] VITALS: BP_SYST 154; PULSE 81; RESP 16; TEMP 97.8; O2SAT 99
== END 2023-11-09 13:30 | disposition home health service (06) | DRG 682 ==
LOC: SED 08:59 → SMU 13:40 → STU 11-07 02:41 → SMU 11-09 04:40
PROVIDERS: ADMIT Preventive Medicine Preventive Medicine/Occupational Environmental Medicine; ATTEND Family Medicine
PROC: 5A1D70Z Performance of Urinary Filtration, Intermittent, Less than 6 Hours Per Day (ICD-10-PCS; principal; 2023-10-27)
PROC: 5A1D70Z Performance of Urinary Filtration, Intermittent, Less than 6 Hours Per Day (ICD-10-PCS; 2023-10-29)
PROC: 5A1D70Z Performance of Urinary Filtration, Intermittent, Less than 6 Hours Per Day (ICD-10-PCS; 2023-10-31)
PROC: 5A1D70Z Performance of Urinary Filtration, Intermittent, Less than 6 Hours Per Day (ICD-10-PCS; 2023-11-02)
PROC: 5A1D70Z Performance of Urinary Filtration, Intermittent, Less than 6 Hours Per Day (ICD-10-PCS; 2023-11-06)
PROC: 5A1D70Z Performance of Urinary Filtration, Intermittent, Less than 6 Hours Per Day (ICD-10-PCS; 2023-11-08)
DX: N17.9 Acute kidney failure, unspecified (principal); G93.41 Metabolic encephalopathy; I12.0 Hypertensive chronic kidney disease with stage 5 chronic kidney disease or end stage renal disease; E44.1 Mild protein-calorie malnutrition; F03.92 Unspecified dementia, unspecified severity, with psychotic disturbance; N18.6 End stage renal disease; E87.5 Hyperkalemia; E11.22 Type 2 diabetes mellitus with diabetic chronic kidney disease; J44.9 Chronic obstructive pulmonary disease, unspecified; E11.42 Type 2 diabetes mellitus with diabetic polyneuropathy; D63.1 Anemia in chronic kidney disease; E78.5 Hyperlipidemia, unspecified; E11.319 Type 2 diabetes mellitus with unspecified diabetic retinopathy without macular edema; D50.9 Iron deficiency anemia, unspecified; E11.51 Type 2 diabetes mellitus with diabetic peripheral angiopathy without gangrene; E11.65 Type 2 diabetes mellitus with hyperglycemia; E83.51 Hypocalcemia; D72.829 Elevated white blood cell count, unspecified; E88.09 Other disorders of plasma-protein metabolism, not elsewhere classified; E83.52 Hypercalcemia; E83.41 Hypermagnesemia; E83.39 Other disorders of phosphorus metabolism; Z86.73 Personal history of transient ischemic attack (TIA), and cerebral infarction without residual deficits; Z68.30 Body mass index [BMI] 30.0-30.9, adult; Z99.2 Dependence on renal dialysis
CPT/HCPCS: 36415; 70450-TC; 71045; 72170-TC; 73502; 73552; 76376; 80048; 80053; 80076; 82140; 83735; 83880; 84100; 84484; 85025; 85610; 85730; 87081; 90935; 90937; 93005; 93971; 97110-GP; 97112-GP; 97116-GP; 97530-GP; 99285; G0378; J1630; J1650

== ENCOUNTER 2024-06-05 19:06 | Inpatient (IN) | payer OTHER ==
[~2024-06-05] VITALS: Ht 165.1 cm; Wt 66.4 kg
[~2024-06-05 19:06] MED LIST changes: -MEGE400O5 PO; +MEGE400O6 PO
[2024-06-05 19:13] VITALS: BP_SYST 198; PULSE 57; RESP 16; TEMP 97.4; O2SAT 96
[2024-06-05] MEDS: cefTRIAXone 1 GM IVPB PREMIX 50 ML IV ONE (19:53)
[2024-06-05 20:02] LABS: BASOPHILS % (AUTO) 0.6 % (0.0-2.0); EOSINOPHILS # (AUTO) 0.1 K/uL (0.0-0.4); EOSINOPHILS % (AUTO) 1.1 % (0.0-4.0); HEMATOCRIT 30.4 % (36-54); HEMOGLOBIN 9.9 g/dL (14.0-18.0); LYMPHOCYTES # (AUTO) 1.2 K/uL (1.0-5.5); LYMPHOCYTES % (AUTO) 19.9 % (20.5-51.5); MEAN CORPUSCULAR HEMOGLOBIN 29 pg (27-31); MEAN CORPUSCULAR HGB CONC 33 % (32-36); MEAN CORPUSCULAR VOLUME 89 fL (79.0-98.0); MONOCYTES # (AUTO) 0.5 K/uL (0.0-1.0); MONOCYTES % (AUTO) 7.5 % (1.7-9.3); NEUTROPHILS # (AUTO) 4.4 K/uL (1.8-7.7); NEUTROPHILS % (AUTO) 70.9 % (40.0-70.0); PLATELET COUNT (AUTO) 151 K/uL (130-430); RED BLOOD CELL COUNT(AUTO) 3.41 MIL/uL (4.2-6.2); RED CELL DISTRIBUTION WIDTH 16.1 % (9.0-15.0); WHITE BLOOD COUNT (AUTO) 6.2 K/uL (4.8-10.8)
[2024-06-05 20:25] LABS: ALANINE AMINOTRANSFERASE 7 U/L (12-78); ALBUMIN 2.6 g/dL (3.4-4.8); ANION GAP 9 (5-15); ASPARTATE AMINOTRANSFERASE 15 U/L (10-37); BILIRUBIN,DIRECT 0.2 mg/dL (0.0-0.3); CARBON DIOXIDE 28 mmol/L (23-29); CHLORIDE 99 mmol/L (98-107); CREATININE 7.34 mg/dL (0.55-1.30); GLUCOSE 123 mg/dL (74-106); POTASSIUM 4.9 mmol/L (3.5-5.1); SODIUM SERUM 136 mmol/L (136-145); TOTAL BILIRUBIN 0.5 mg/dL (0.0-1.0); TOTAL PROTEIN, SERUM 6.3 g/dL (6.4-8.3); UREA NITROGEN, BLOOD 71 mg/dL (8-21)
[2024-06-05 21:11] LABS: BILIRUBIN,URINE NEGATIVE (NEGATIVE); BLOOD, URINE 2+ (NEGATIVE); CLARITY/URINE CLOUDY (CLEAR); COLOR,URINE YELLOW (YELLOW); GLUCOSE,URINE NEGATIVE (NEGATIVE); KETONES,URINE NEGATIVE (NEGATIVE); LEUKOCYTE ESTERASE ,URINE 3+ (NEGATIVE); NITRITE, URINE NEGATIVE (NEGATIVE); PROTEIN URINE 3+ (NEGATIVE); UROBILINOGEN,URINE 0.2 (0.2-1.0)
[2024-06-05 21:55] LABS: BACTERIA,URINE FEW /HPF (None Seen); MUCUS,URINE None Seen /LPF (None Seen); WBC,URINE >100 /HPF (0-3)
[2024-06-05] MEDS: CEFEPIME 1 GM in D5W 50 ML IV ONE (22:04)
[2024-06-05] MEDS ORDERED: CEFEPIME 1 GM/VIAL (MAXIPIME) ONE (22:06)
[2024-06-05] MEDS ORDERED: ACETAMINOPHEN 325 MG TABLET PO PRN (22:15)
[2024-06-06 00:26] VITALS: BP_SYST 177; PULSE 97; RESP 18; TEMP 98.1
[2024-06-06 00:34] VITALS: O2SAT 95
[2024-06-06 05:11] VITALS: BP_SYST 189; PULSE 55; RESP 16; TEMP 97.5; O2SAT 98
[2024-06-06] MEDS: LORazepam 2 MG/ML VIAL IVP ONE (05:11)
[2024-06-06 08:00] VITALS: BP_SYST 162; PULSE 59; RESP 18; TEMP 97.3; O2SAT 99
[2024-06-06] MEDS ORDERED: ACETAMINOPHEN 325 MG TABLET PO PRN (10:45)
[2024-06-06] MEDS: cloNIDine HCL 0.1 MG TABLET PO PRN (11:18)
[2024-06-06 12:39] VITALS: BP_SYST 199; PULSE 51; RESP 16; TEMP 97.1; O2SAT 100
[2024-06-06 18:39] VITALS: BP_SYST 158; PULSE 51; RESP 16; TEMP 97; O2SAT 98
[2024-06-06] MEDS ORDERED: INSULIN Lispro 100 UNITS/ML, 3 ML VIAL (humaLOG) SUBCUT SCH (20:00)
[2024-06-06] MEDS ORDERED: NALOXONE HCL 0.4 MG/ML AMP (NARCAN) IVP PRN (20:00)
[2024-06-06] MEDS ORDERED: cefTRIAXone 1 GM in D5W 50 ML IV SCH (20:00)
[2024-06-06] MEDS ORDERED: HYDROcodone/ACETAMIN 5-325 MG TAB (NORCO/ VICODIN) PO SCH (20:00)
[2024-06-06] MEDS ORDERED: CALCIUM CARBONATE PO SCH (21:00)
[2024-06-06] MEDS: QUEtiapine FUMARATE 25 MG TABLET PO SCH (22:01)
[2024-06-06] MEDS: SERTRALINE HCL 50 MG TABLET PO SCH (22:02)
[2024-06-06] MEDS: METOPROLOL TARTRATE 50 MG TABLET PO SCH (22:02)
[2024-06-06] MEDS: CEFTRIAXONE SOD 1 GM/ D5W 50 ML IV SCH (22:03)
[2024-06-07] VITALS (7 sets, daily range): BP systolic 119–179; PULSE 57–89; RESP 15–18; TEMP 97.5–99.6; O2SAT 97–99
[2024-06-07] MEDS ORDERED: CALC667T6 PO (06:58)
[2024-06-07 07:10] LABS: BASOPHILS # (AUTO) 0.1 K/uL (0.0-0.2); BASOPHILS % (AUTO) 0.9 % (0.0-2.0); EOSINOPHILS # (AUTO) 0.1 K/uL (0.0-0.4); EOSINOPHILS % (AUTO) 1.1 % (0.0-4.0); HEMATOCRIT 29.6 % (36-54); HEMOGLOBIN 9.7 g/dL (14.0-18.0); LYMPHOCYTES % (AUTO) 13.8 % (20.5-51.5); MEAN CORPUSCULAR HEMOGLOBIN 29 pg (27-31); MEAN CORPUSCULAR HGB CONC 33 % (32-36); MEAN CORPUSCULAR VOLUME 88 fL (79.0-98.0); MONOCYTES # (AUTO) 0.6 K/uL (0.0-1.0); MONOCYTES % (AUTO) 8.8 % (1.7-9.3); NEUTROPHILS # (AUTO) 5.3 K/uL (1.8-7.7); NEUTROPHILS % (AUTO) 75.4 % (40.0-70.0); PLATELET COUNT (AUTO) 159 K/uL (130-430); RED BLOOD CELL COUNT(AUTO) 3.36 MIL/uL (4.2-6.2)
[2024-06-07 07:38] LABS: ANION GAP 12 (5-15); CARBON DIOXIDE 28 mmol/L (23-29); CHLORIDE 98 mmol/L (98-107); CREATININE 5.54 mg/dL (0.55-1.30); GLUCOSE 100 mg/dL (74-106); POTASSIUM 3.9 mmol/L (3.5-5.1); SODIUM SERUM 138 mmol/L (136-145); UREA NITROGEN, BLOOD 48 mg/dL (8-21)
[2024-06-07 08:51] LABS: ABG O2 SAT% ESTIMATE 97.4 % (94.0-98.0); BLOOD GAS BASE EXCESS 2.6 mmol/L (-2.0-3.0); BLOOD GAS HCO3 25.7 mmol/L (21.0-28.0); BLOOD GAS PCO2 34.2 mmHg (35.0-48.0); BLOOD GAS PH 7.494 (7.350-7.450); BLOOD GAS PO2 88.7 mmHg (83.0-108.0)
[2024-06-07 08:56] LABS: ALLEN'S TEST POSITIVE (P)
[2024-06-07] MEDS: ENOXAPARIN SODIUM 30 MG/0.3 ML SYRINGE SQ SCH (09:00)
[2024-06-07] MEDS: MEGESTROL ACETATE 400 MG/10 ML UDC PO SCH (09:00)
[2024-06-07] MEDS: SEVELAMER CARBONATE 800 MG TABLET PO SCH (10:46)
[2024-06-07] MEDS: CALCIUM ACETATE 667 MG CAP PO SCH (10:47)
[2024-06-07] MEDS: NIFEDIPINE 90 MG TABLET.SA (PROCARDIA XL 90 MG) PO SCH (10:47)
[2024-06-07] MEDS: CALCIUM CARBONATE/VITAMIN D3 1 TAB TABLET PO SCH (10:50)
[2024-06-07] MEDS: LORazepam 1 MG TABLET PO PRN (13:03)
[2024-06-08 00:22] VITALS: BP_SYST 124; PULSE 54; RESP 14; TEMP 97.6; O2SAT 98
[2024-06-08 07:51] VITALS: O2SAT 96
[2024-06-08 08:00] VITALS: PULSE 56; RESP 16; TEMP 98.6; O2SAT 99
[2024-06-08 12:27] VITALS: BP_SYST 142; PULSE 58; RESP 15; TEMP 98.2; O2SAT 98
[2024-06-08 16:17] VITALS: BP_SYST 130; PULSE 60; RESP 16; TEMP 98.4; O2SAT 99
[2024-06-08 20:00] VITALS: BP_SYST 131; PULSE 89; RESP 16; TEMP 98.3; O2SAT 96
[2024-06-09 00:36] VITALS: BP_SYST 143; PULSE 71; RESP 18; TEMP 97.7; O2SAT 99
[2024-06-09 07:15] VITALS: BP_SYST 190; PULSE 65; RESP 18; TEMP 97.7; O2SAT 100
[2024-06-09 07:36] LABS: BASOPHILS % (AUTO) 0.5 % (0.0-2.0); EOSINOPHILS # (AUTO) 0.1 K/uL (0.0-0.4); EOSINOPHILS % (AUTO) 1.4 % (0.0-4.0); HEMATOCRIT 33.3 % (36-54); HEMOGLOBIN 11.1 g/dL (14.0-18.0); LYMPHOCYTES # (AUTO) 1.1 K/uL (1.0-5.5); LYMPHOCYTES % (AUTO) 15.5 % (20.5-51.5); MEAN CORPUSCULAR HEMOGLOBIN 29 pg (27-31); MEAN CORPUSCULAR HGB CONC 33 % (32-36); MEAN CORPUSCULAR VOLUME 88 fL (79.0-98.0); MONOCYTES # (AUTO) 0.7 K/uL (0.0-1.0); MONOCYTES % (AUTO) 9.3 % (1.7-9.3); NEUTROPHILS # (AUTO) 5.3 K/uL (1.8-7.7); NEUTROPHILS % (AUTO) 73.3 % (40.0-70.0); PLATELET COUNT (AUTO) 201 K/uL (130-430); RED BLOOD CELL COUNT(AUTO) 3.79 MIL/uL (4.2-6.2); WHITE BLOOD COUNT (AUTO) 7.3 K/uL (4.8-10.8)
[2024-06-09 07:54] LABS: ANION GAP 6 (5-15); CALCIUM 9.2 mg/dL (8.4-11.0); CARBON DIOXIDE 31 mmol/L (23-29); CHLORIDE 96 mmol/L (98-107); CREATININE 5.77 mg/dL (0.55-1.30); GLUCOSE 119 mg/dL (74-106); PHOSPHORUS 4.1 mg/dL (2.7-4.5); POTASSIUM 3.5 mmol/L (3.5-5.1); SODIUM SERUM 133 mmol/L (136-145); UREA NITROGEN, BLOOD 50 mg/dL (8-21)
[2024-06-09 07:56] LABS: ERYTHROCYTE SEDIMENTATION RATE 48 MM/HR (0-15)
[2024-06-09 08:00] VITALS: O2SAT 100
[2024-06-09 13:10] VITALS: BP_SYST 169; PULSE 68; RESP 17; TEMP 97.9; O2SAT 97
[2024-06-09 16:00] VITALS: BP_SYST 195; PULSE 89; RESP 17; TEMP 98.7; O2SAT 99
[2024-06-09 20:00] VITALS: BP_SYST 119; PULSE 68; RESP 16; TEMP 97.6; O2SAT 100
[2024-06-09] MEDS: METOPROLOL TARTRATE 50 MG TABLET PO SCH (21:33)
[2024-06-10 00:11] VITALS: BP_SYST 117; PULSE 73; RESP 18; TEMP 98.6; O2SAT 100
[2024-06-10 07:49] LABS: PHOSPHORUS 3.5 mg/dL (2.7-4.5)
[2024-06-10 08:00] VITALS: O2SAT 98
[2024-06-10 11:05] VITALS: BP_SYST 148; PULSE 77; RESP 16; TEMP 99.2; O2SAT 95
[2024-06-10] MEDS: CIPROFLOXACIN HCL 500 MG TABLET PO ONE (11:30)
[2024-06-10 16:08] VITALS: BP_SYST 163; PULSE 86; RESP 16; TEMP 99.2; O2SAT 97
[2024-06-10 22:06] VITALS: BP_SYST 157; PULSE 82; RESP 18; TEMP 98.8; O2SAT 97
[2024-06-10 22:47] VITALS: O2SAT 97
[2024-06-11 00:51] VITALS: BP_SYST 132; PULSE 75; RESP 17; TEMP 99.1
[2024-06-11 08:00] VITALS: BP_SYST 180; PULSE 81; RESP 16; TEMP 98; O2SAT 100
[2024-06-11] MEDS: CIPROFLOXACIN HCL 500 MG TABLET PO SCH (09:39)
[2024-06-11 11:08] VITALS: BP_SYST 167; PULSE 88; RESP 16; TEMP 99.4; O2SAT 96
[2024-06-11 16:03] VITALS: BP_SYST 149; PULSE 85; RESP 16; TEMP 100; O2SAT 96
[2024-06-11 21:20] VITALS: BP_SYST 144; PULSE 84; RESP 18; TEMP 97.3; O2SAT 97
[2024-06-12] VITALS (7 sets, daily range): BP systolic 137–199; PULSE 83–93; RESP 12–18; TEMP 97.2–98.1; O2SAT 97–100
[2024-06-13] VITALS (11 sets, daily range): BP systolic 136–163; PULSE 71–145; RESP 19–25; TEMP 97.2–98.3; O2SAT 90–99
[2024-06-13 12:48] LABS: BASOPHILS % (AUTO) 0.2 % (0.0-2.0); HEMATOCRIT 34.8 % (36-54); LYMPHOCYTES # (AUTO) 1.1 K/uL (1.0-5.5); LYMPHOCYTES % (AUTO) 7.5 % (20.5-51.5); MEAN CORPUSCULAR HEMOGLOBIN 29 pg (27-31); MEAN CORPUSCULAR HGB CONC 32 % (32-36); MEAN CORPUSCULAR VOLUME 92 fL (79.0-98.0); MONOCYTES % (AUTO) 6.9 % (1.7-9.3); NEUTROPHILS # (AUTO) 12.4 K/uL (1.8-7.7); NEUTROPHILS % (AUTO) 85.4 % (40.0-70.0); PLATELET COUNT (AUTO) 259 K/uL (130-430); RED CELL DISTRIBUTION WIDTH 16.1 % (9.0-15.0); WHITE BLOOD COUNT (AUTO) 14.6 K/uL (4.8-10.8)
[2024-06-13 13:44] LABS: ALANINE AMINOTRANSFERASE 10 U/L (12-78); ALBUMIN 3.1 g/dL (3.4-4.8); ANION GAP 6 (5-15); ASPARTATE AMINOTRANSFERASE 23 U/L (10-37); CALCIUM 9.9 mg/dL (8.4-11.0); CARBON DIOXIDE 33 mmol/L (23-29); CHLORIDE 102 mmol/L (98-107); CREATININE 5.17 mg/dL (0.55-1.30); GLUCOSE 170 mg/dL (74-106); POTASSIUM 5.5 mmol/L (3.5-5.1); SODIUM SERUM 141 mmol/L (136-145); TOTAL BILIRUBIN 0.7 mg/dL (0.0-1.0); TOTAL PROTEIN, SERUM 7.5 g/dL (6.4-8.3); UREA NITROGEN, BLOOD 42 mg/dL (8-21)
[2024-06-13] MEDS: PIPERACILLIN/TAZO 3.375 GM in NS 50 ML IV ONE (14:15)
[2024-06-13 14:26] LABS: ABG O2 SAT% ESTIMATE 90.7 % (94.0-98.0); BLOOD GAS BASE EXCESS 0.4 mmol/L (-2.0-3.0); BLOOD GAS HCO3 25.6 mmol/L (21.0-28.0); BLOOD GAS PCO2 43.7 mmHg (35.0-48.0); BLOOD GAS PH 7.386 (7.350-7.450); BLOOD GAS PO2 60.1 mmHg (83.0-108.0)
[2024-06-13] MEDS: SODIUM POLYSTYRENE SULFONATE 15 GM/60 ML UDBTL RC ONE (17:04)
[2024-06-13] MEDS: PIPERACILLIN/TAZOBACTAM 2.25 GM/ D5W 50 ML IV SCH (21:18)
[2024-06-14] VITALS (14 sets, daily range): BP systolic 120–176; PULSE 87–139; RESP 17–22; TEMP 96.6–98.2; O2SAT 92–100
[2024-06-14 06:11] LABS: BASOPHILS % (AUTO) 0.2 % (0.0-2.0); HEMATOCRIT 33.5 % (36-54); HEMOGLOBIN 10.5 g/dL (14.0-18.0); LYMPHOCYTES # (AUTO) 0.6 K/uL (1.0-5.5); LYMPHOCYTES % (AUTO) 4.7 % (20.5-51.5); MEAN CORPUSCULAR HEMOGLOBIN 29 pg (27-31); MEAN CORPUSCULAR HGB CONC 32 % (32-36); MEAN CORPUSCULAR VOLUME 91 fL (79.0-98.0); MONOCYTES # (AUTO) 1.1 K/uL (0.0-1.0); NEUTROPHILS # (AUTO) 10.4 K/uL (1.8-7.7); NEUTROPHILS % (AUTO) 86.1 % (40.0-70.0); PLATELET COUNT (AUTO) 240 K/uL (130-430); RED BLOOD CELL COUNT(AUTO) 3.68 MIL/uL (4.2-6.2); RED CELL DISTRIBUTION WIDTH 16.3 % (9.0-15.0); WHITE BLOOD COUNT (AUTO) 12.1 K/uL (4.8-10.8)
[2024-06-14 06:30] LABS: ANION GAP 12 (5-15); CALCIUM 9.9 mg/dL (8.4-11.0); CARBON DIOXIDE 29 mmol/L (23-29); CHLORIDE 101 mmol/L (98-107); CREATININE 5.61 mg/dL (0.55-1.30); GLUCOSE 182 mg/dL (74-106); POTASSIUM 5.3 mmol/L (3.5-5.1); SODIUM SERUM 142 mmol/L (136-145); UREA NITROGEN, BLOOD 50 mg/dL (8-21)
[2024-06-14] MEDS: D5/0.45 NS 1,000 ML IV SCH (12:40)
[2024-06-14] MEDS ORDERED: NALOXONE HCL 0.4 MG/ML AMP (NARCAN) IVP PRN (12:45)
[2024-06-14] MEDS: MORPHINE 2 MG/ML INJ. SYRINGE IVP PRN (12:48)
[2024-06-14] MEDS: PIPERACILLIN/TAZOBACTAM 2.25 GM VIAL IV ONE (22:58)
[2024-06-15] VITALS (9 sets, daily range): BP systolic 102–152; PULSE 85–98; RESP 16–18; TEMP 97.4–98.4; O2SAT 96–100
[2024-06-15] MEDS: LORazepam 2 MG/ML VIAL IVP PRN (04:27)
[2024-06-15] MEDS: MORPHINE 2 MG/ML INJ. SYRINGE IVP PRN (12:45)
[2024-06-16] VITALS (9 sets, daily range): BP systolic 106–197; PULSE 67–104; RESP 16–20; TEMP 97.2–98.1; O2SAT 96–100
[2024-06-16] MEDS: hydrALAZINE HCL 20 MG/ML VIAL IVP PRN (08:29)
[2024-06-17] VITALS (7 sets, daily range): BP systolic 114–140; PULSE 85–95; RESP 16–20; TEMP 97.2–98.6; O2SAT 95–99
== END 2024-06-17 19:54 | disposition hospice, home (50) | DRG 177 ==
LOC: SED 19:06 → SMU 22:11 → STU 06-13 14:39
PROVIDERS: ADMIT Specialist; ATTEND Specialist
PROC: 5A1D70Z Performance of Urinary Filtration, Intermittent, Less than 6 Hours Per Day (ICD-10-PCS; 2024-06-06)
PROC: 5A1D70Z Performance of Urinary Filtration, Intermittent, Less than 6 Hours Per Day (ICD-10-PCS; 2024-06-07)
PROC: 5A1D70Z Performance of Urinary Filtration, Intermittent, Less than 6 Hours Per Day (ICD-10-PCS; 2024-06-09)
PROC: 4A00X4Z Measurement of Central Nervous Electrical Activity, External Approach (ICD-10-PCS; principal; 2024-06-10)
PROC: 5A1D70Z Performance of Urinary Filtration, Intermittent, Less than 6 Hours Per Day (ICD-10-PCS; 2024-06-10)
DX: J69.0 Pneumonitis due to inhalation of food and vomit (principal); J96.01 Acute respiratory failure with hypoxia; N18.6 End stage renal disease; I12.0 Hypertensive chronic kidney disease with stage 5 chronic kidney disease or end stage renal disease; N39.0 Urinary tract infection, site not specified; N17.9 Acute kidney failure, unspecified; E83.52 Hypercalcemia; D63.1 Anemia in chronic kidney disease; E11.22 Type 2 diabetes mellitus with diabetic chronic kidney disease; Z99.2 Dependence on renal dialysis; Z79.899 Other long term (current) drug therapy; Z88.8 Allergy status to other drugs, medicaments and biological substances
CPT/HCPCS: 36415; 36600; 71045; 80048; 80053; 80076; 81000; 81001; 81015; 82803; 82948; 83605; 83735; 84100; 85025; 85651; 87040; 87081; 87086; 87186; 90935; 90937; 93005; 94070; 94760; 95816; 96365; 97112-GP; 97530-GP; 99285; C1751; G0378; J0360; J0692; J0696; J1650; J2060; J2270; J2543; J7030; J7060